=== PATIENT | male | born 1940 | race Caucasian/White ===

== ENCOUNTER 2025-01-16 12:58 | Outpatient (AMB) | payer MEDICARE, SELFPAY ==
--- NOTE | 2025-01-16 12:59 | MHC.PC.OV ---
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 Restaurant Cook Required: Yes Accompanied by: Daughter Allergies No Known Allergies Allergy (Verified 01/16/25 13:17) Tobacco use date assessed: 01/16/25 Fall risk assessment: No Falls in past year Last assessed Fall Risk: 01/16/25 Dental Screening Dental Screen Date: 01/16/25 Did you have a dental visit in the last 12 months?: Yes Did you have a dental problem in the last 6 months where you did not have access to dental care?: No Was dental information given to patient?: Patient has dentist HPI HPI Comments History of Present Illness Details History of Present Illness The patient is an 84-year-old male presenting with daugther to establish care as per daughter he has no significant medical history Possible glaucoma: The patient expresses concern about developing glaucoma, with a gradual onset of vision blurriness over the past three years, suspecting cataracts as a possible cause. Surgical History: - Treatment of a right femur intertrochanteric fracture with an intramedullary implant. - Hernia repair in 2019. - Hernia repair approximately 15 years ago. Medications: - Cyanocobalamin with vitamin B12 solution for injection for management of potential vitamin deficiency. 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 - The patient has not smoked. Family History: - The patient reports no smoking history and no family history of glaucoma or significant familial disease discussed. Past Medical History - Comminuted fracture of the right hip, status post repair with intramedullary implant - Supraventricular tachycardia (SVT) - Gout - Trigeminal neuralgia - Hypertension - Congestive heart failure Health Maintenance - Regular follow-up for chronic conditions scheduled in 2 weeks. - Ophthalmology referral for vision concerns. - Blood work, including tests for vitamin D, B12, and folate. [facility] Medical History (Updated 01/16/25 @ 13:53 by Glenn Pisano MD) Blurry vision Thickened nails Surgical History (Updated 01/16/25 @ 13:28 by Mcihel Syed CMA) H/O hernia repair Social History (Updated 01/16/25 @ 13:20 by Michel Syed CMA) Housing: Apartment Alcohol intake: never Patient Tobacco Use Status: Never used Tobacco e-Cigarette/Vaping Use: Never Used Second Hand Smoke Exposure: No service: No Current occupational status: unemployed Current occupational exposures/hazards: No Cognitive needs: No Hearing needs: No Vision needs: Yes Questionnaire PHQ-9 Over the last 2 weeks, how often have you been bothered by any of the following problems? 1. Little interest or pleasure in doing things: not at all 2. Feeling down, depressed, or hopeless: not at all 3. Trouble falling or staying asleep, or sleeping too much: nearly every day 4. Feeling tired or having little energy: not at all 5. Poor appetite or overeating: not at all 6. Feeling bad about yourself - or that you are a failure or have let yourself or your family down: not at all 7. Trouble concentrating on things, such as reading the newspaper or watching television: not at all 8. Moving or speaking so slowly that other people could have noticed. Or the opposite - being so fidgety or restless that you have been moving around a lot more than usual: not at all 9. Thoughts that you would be better off or of hurting yourself in some way: not at all Total score: 3 Depression Screening Interpretation: Negative Depression Screening Done: Yes 96074 - PHQ-9 Billing: Yes Source: Developed by Drs. Saran Berkowitz, Brenda Yin, Sergei Rosenberg and colleagues, with an educational larry from [employer]. Thrive Questionnaire Date Thrive assessed: 01/16/25 I am a: Patient What is your living situation today?: I have a steady place to live Within the past 12 months, did the food you bought not last and you didn't have the money to get more?: I choose not to answer this question Within the past 12 months, did you worry whether your food would run out before you got money to buy more?: I choose not to answer this question Do you have trouble paying for medicines?: No Do you have trouble getting transportation to medical appointments?: I choose not to answer this question Do you have trouble paying your heating and electricity bill?: I choose not to answer this question Do you have trouble taking care of your child, family member or friend?: I choose not to answer this question Are you currently unemployed and looking for a job?: I choose not to answer this question Are you interested in more education?: I choose not to answer this question Please select the resources that you would like help with: None Currently or been in a relationship where the following occur: No concerns reported THRIVE Score: 0 AUDIT C Alcohol Use Questionnaire (AUDIT-C) 1. How often do you have a drink containing alcohol?: Never Total Score: 0 JARVIS-7 AMB Questionnaire JARVIS-7 Date JARVIS - 7 assessed: 01/16/25 Feeling nervous, anxious, or on edge: 0 = Not at all Not being able to stop or control worryin = Not at all Worrying too much about different things: 0 = Not at all Trouble relaxin = Not at all Being so restless that it is hard to sit still: 0 = Not at all Becoming easily annoyed or irritable: 0 = Not at all Feeling afraid as if something awful might happen: 0 = Not at all Total JARVIS-7 score (0-4 normal; 5-9 mild; 10-14 moderate; 15-21 severe): 0 Source: Developed by Drs. Saran Berkowitz, Brenda Yin, Sergei Rosenberg and colleagues, with an educational larry from [employer]. JARVIS-7 Assessment Billing JARVIS-7 Assessment Tool: JARVIS-7 Assessment 82958 Review of Systems Narrative Review of Systems - Ophthalmologic: Reports gradually worsening blurred vision over the last three years. - Genitourinary: Denies any urinary issues; reports regular daily function. - Neurologic: Reports no foot issues; denies symptoms of gout onset at present. 10-point ROS reviewed and negative except as noted in HPI Physical exam (Primary Care) Vital Signs: Last Vital Signs Temp 97.2 F 01/16/25 13:24 Pulse 66 01/16/25 13:24 Resp 16 01/16/25 13:24 BP 115/65 01/16/25 13:24 Pulse Ox 97 01/16/25 13:24 Oxygen Delivery Method Room Air 01/16/25 13:24 BMI result Body Mass Index 24.0 Tobacco/Smoking Status: Tobacco use Status Tobacco use date assessed 01/16/25 01/16/25 13:20 Patient Tobacco Use Status Never used Tobacco 01/16/25 13:20 e-Cigarette/Vaping Use Never Used 01/16/25 13:20 PHQ-9: PHQ-9 Score PHQ-9: Total score 3 01/16/25 13:00 Depression Screening Interpretation: Negative Thrive Assessment: Date of Thrive Assessment Date Thrive assessed 01/16/25 01/16/25 13:00 Currently or been in a relationship where the following occur: No concerns reported Narrative Physical Exam General: Appears ill, in no acute distress. Vital signs: Within normal limits. HEENT: Normocephalic, atraumatic. PERRLA, EOMI. Conjunctiva clear, sclera anicteric. Oropharynx clear, mucous membranes moist. TMs intact bilaterally. Patient reports blurry vision, possibly due to cataracts, and suspects glaucoma. Neck: Supple, no lymphadenopathy, no thyromegaly, no JVD or carotid bruits. Cardiovascular: RRR, normal S1/S2, no murmurs, rubs, or gallops. Peripheral pulses 2+ and symmetric. No edema. Patient reports occasional heart sensations but no heart medication history. Respiratory: Lungs clear to auscultation bilaterally, no wheezes, rales, or rhonchi. Normal effort. Abdomen: Soft, non-tender, non-distended. Normoactive bowel sounds. No hepatosplenomegaly, no masses. MSK: Full range of motion, no joint swelling or deformity. Normal gait. Patient reports a need for podiatry referral for foot issues. Skin: Warm, dry, intact. No rashes, lesions, or pallor. Thickened nails of the feet Neuro: Alert and oriented x3. Cranial nerves II-XII intact. Strength 5/5 throughout. Sensation intact. Reflexes 2+ symmetric. Normal coordination and gait. Psych: Appropriate mood and affect. Normal judgment and insight. Patient reports occasional insomnia due to worry. Coding Level of Care Code New Pt Level 4 (73436) Diagnoses Blurry vision H53.8 Thickened nails L60.2 Additional Codes JARVIS-7 Assessment Billing - JARVIS-7 Assessment Tool: JARVIS-7 Assessment 50457 ([id number]) PHQ-9 - 73482 - PHQ-9 Billing: Yes ([id number]) Assessment & Plan Assessment & Plan (1) Blurry vision: Code(s): H53.8 - Other visual disturbances Category: Medical (2) Thickened nails: Code(s): L60.2 - Onychogryphosis Category: Medical Plan Consent The patient provided verbal consent for laboratory tests that include vitamin D, B12, and folate levels. Risks, benefits, and alternatives of continuing vitamin B12 supplementation were discussed, and the patient wishes to continue B12 injections. Patient was informed and verbally consented to the use of an ambient scribe for clinic note documentation during this visit. Plan 1. Possible Glaucoma - Referral to ophthalmology. 2. Cataracts - Referral to ophthalmology for assessment. Discussion Notes I discussed the patient's current health status, including the management of chronic conditions. We spoke about the importance of continuing B12 supplementation and I advised the patient to undergo laboratory tests to better understand his vitamin levels. The need for a follow-up ophthalmology consultation for his vision concerns was highlighted and an appointment will be scheduled. Patient Instructions - Continue taking current medications as prescribed. - Follow-up in two weeks for review of lab results. - Obtain laboratory tests including vitamin D, B12, and folate immediately adjacent clinic. - Schedule and attend an ophthalmology appointment to assess vision. - Monitor symptoms and notify the office if experiencing any exacerbations in pain or vision. Medical Decision Making 30 min Total time spent caring for the patient today includes pre-visit chart review, documentation, review of laboratory and diagnostic imaging results, medication reconciliation, medically necessary evaluation, counseling on diagnoses, care coordination, ordering appropriate tests and medications, review of tests performed by other providers, reporting test results to the patient, and communication with other healthcare providers. Orders: Orders Complete Blood Count Auto Diff Today Z13.9 - Encounter for screening, unspecified Comprehensive Met. Panel Today Z13.9 - Encounter for screening, unspecified HIV Ab/Ag Today Z13.9 - Encounter for screening, unspecified UA CC w/rflx Micro + Cult Today Z13.9 - Encounter for screening, unspecified Hemoglobin A1c Today Z13.9 - Encounter for screening, unspecified Magnesium Today Z13.9 - Encounter for screening, unspecified Hepatitis B Surface Antigen Today Z13.9 - Encounter for screening, unspecified Syphilis Screen Today Z13.9 - Encounter for screening, unspecified Hepatitis C Antibody Today Z13.9 - Encounter for screening, unspecified TSH reflex Free T4 Today Z13.9 - Encounter for screening, unspecified Lipid Panel Today Z13.9 - Encounter for screening, unspecified Vitamin B12 and Folate Today Z13.9 - Encounter for screening, unspecified Vitamin D 1,25 dihydroxy Today Z13.9 - Encounter for screening, unspecified Hepatitis B Surface Antibody Today Z13.9 - Encounter for screening, unspecified Referrals Podiatry Referral L60.2 - Onychogryphosis Ophthalmology Referral H53.8 - Other visual disturbances
[2025-01-16 13:24] VITALS: BP 115/65; PULSE 66; RESP 16; TEMP 36.2; O2SAT 97; BMI 24.0
== END 2025-01-16 13:58 | disposition home or self-care (01) ==
LOC: HO.HMCFMS 12:59
PROVIDERS: PCP Student in an Organized Health Care Education/Training Program; Visit Provider Student in an Organized Health Care Education/Training Program
DX: H53.8 Other visual disturbances (principal); L60.2 Onychogryphosis

== ENCOUNTER 2025-01-16 12:58 | Outpatient (REF) | payer MEDICARE, SELFPAY ==
--- OUTSIDE RECORDS SUMMARY | 2023-09-13 10:15 | XMS_ITS ---
Author Organization [facility] Address [address] [place] [address] Care Team Providers Care Toter Name Role Phone Keri WHITAKER, Juan Alberto Primary Care Provider U Juan Guzman Unavailable [phone] Encounters Encounter Location Date Provider Diagnosis [facility] [address] [place] [phone] 09/13/2023 Juan Thompson Plan Of Treatment No Information Progress Notes * Faisal MORANDOB:[birth year] (84 yo M)Acc No.[id number]:09/13/2023 Progress Note Patient: Faisal JACKSON Provider: Yara Thompson DPM :1940 A ge:83 Y S ex:Male Date:09/13/2023 Address:[address] [place] [phone] Pcp:Juan Alberto Saavedra MD Subjective: * Chief Complaints: * * Medical History: Objective: * Vitals: Assessment: Plan: * Treatment: * Images: * The named appointment provid er may or may not be the originator of this progress note, and it is not deemed complete until electronically signed by the appointment provider. Sign off status: Pending * Provider: Yara Thompson DPM Date: 0 09/13/2023 Generated for Geoffi ng/Faxing/eTransmitting on: 1 03/19/2024 07:26 PM EST
--- OUTSIDE RECORDS SUMMARY | 2023-10-18 10:45 | XMS_ITS ---
Author Organization [facility] Address [address] [place] [address] Care Team Providers Care Dental Assistant Name Role Phone Keri WHITAKER, Juan Alberto Primary Care Provider U Juan Guzman Unavailable [phone] Encounters Encounter Location Date Provider Diagnosis [facility] [address] [place] [address] [place] [phone] 10/18/2023 Juan Thompson Plan Of Treatment No Information Progress Notes * Faisal MORANDOB:[birth year] (84 yo M)Acc No.[id number]:10/18/2023 Progress Note Patient: Faisal JACKSON Provider: Yara Thompson DPM :1940 A ge:83 Y S ex:Male Date:10/18/2023 Address:[address] [place] [phone] Pcp:Juan Alberto Saavedra MD Subjective: * Chief [...] 10/18/2023 Generated for Printi ng/Faxing/eTransmitting on: 1 03/19/2024 07:27 PM EST
[2025-01-16 17:45] LABS: MANUAL DIFF FLAG NO
[2025-01-16 17:56] LABS: Appearance Urine Clear; Glucose Urine UA Negative (Negative); PH 5.5 (5.0-9.0); Specific Gravity - Urine 1.020 (1.005-1.025)
[2025-01-16 18:18] LABS: Hematocrit 38.3 % (42.0-52.0); Hemoglobin 12.3 g/dl (14.0-18.0); Imm Gran Abs Auto 0.02 X10*3/uL (0.00-0.03); Imm Gran Pct Auto 0.3 % (0.0-0.4); Lymphocytes Absolute Auto 1.6 X10*3/uL (1.2-4.9); Mean Corpuscular HGB Conc 32.1 g/dl (31.0-36.0); Mean Corpuscular Hemoglobin 26.1 pg (27.0-33.0); Mean Corpuscular Volume 81.1 fL (80.0-98.0); NRBC Abs Auto 0.000 X10*3/uL (0.0-0.012); NRBC Pct Auto 0.0 /100WBC (0.0-0.2); Platelet Count 178 X10*3/uL (160-400); Red Blood Count 4.72 X10*6/uL (4.60-5.80); White Blood Count 6.3 X10*3/uL (4.8-10.8)
[2025-01-16 18:43] LABS: Alanine Aminotransferase 18 U/L (0-40); Albumin Level 4.6 g/dL (3.5-5.0); Alkaline Phosphatase 68 U/L (39-117); Anion Gap 12 (12-20); Aspartate Amino Transferase 23 U/L (5-37); Blood Urea Nitrogen 18 mg/dL (9-16); Calcium 9.2 mg/dL (8.4-10.2); Carbon Dioxide 25 mmol/L (22-29); Chloride 102 mmol/L (96-108); Cholesterol 171 mg/dL (<200); Estimated Glomerular Filt Rate > 60; HDL Cholesterol 55 mg/dL (>40); Magnesium 2.0 mg/dL (1.6-2.6); Potassium 4.0 mmol/L (3.3-5.1); Sodium 135 mmol/L (135-145); Total Protein 7.5 g/dL (6.5-8.0); Triglycerides 154 mg/dL (<150)
[2025-01-16 18:44] LABS: Folate 9.4 ng/mL (> or = 4.0); Vitamin B12 212 pg/mL (200-900)
--- OUTSIDE RECORDS SUMMARY | 2025-01-16 19:27 | XMS_ITS | Clinical Summary ---
Author Organization [facility] [facility] Address [address] [facility] [address] [place] [address] Care Team Providers Care Vascular Manager Name Role Phone Unavailable Primary Care Provider Unavailabl e Social History Tobacco Use Types Packs/Day Years Used Date Smoking Tobacco: Never Assessed Sex and Gender Information Value Date Recorded Sex Assigned at Male 12/13/2021 10:39 AM EDT Legal Sex Male 10:39 AM EDT Gender Identity Male 12/13/2021 10:39 AM EDT Sexual Orientation Straight 12/13/2021 10 :39 AM EDT Plan of Treatment Health Maintenance Due Date Last Done Comments Depression Screening 1940 Lipid Panel 1940 Alcohol/Substance Use Screening 1952 Tobacco Screening 1952 DTaP/Tdap/Td Vaccines (1 - Tdap) 08/22/1959 Pneumococcal Vaccine: 50+ Ye ars (1 of 1 - PCV) 1990 Zoster Vaccines (1 of 2) 1990 RSV Patients and Pa tients Aged 60 years or older (1 - 1-dose 75+ series) 08/22/2015 COVID-19 Vaccine ( - 2024-2 6 season) 2024 Influenza Vaccine (#1) 2024 HIB Vaccines Aged Out No longer eligi ble based on patient's age to complete this topic HPV Vaccines Aged Out No longer eligi ble based on patient's age to complete this topic Hepatitis A Vaccines Aged Out No long er eligible based on patient's age to complete this topic Hepatitis B Vaccines Aged Out No long er eligible based on patient's age to complete this topic IPV Vaccines Aged Out No longer eligi ble based on patient's age to complete this topic Meningococcal B Vaccine Aged Out No l onger eligible based on patient's age to complete this topic Meningococcal Vaccine Aged Out No juan simona eligible based on patient's age to complete this topic RSV under 20 months Aged Out No longe r eligible based on patient's age to complete this topic Rotavirus Vaccines Aged Out No longer eligible based on patient's age to complete this topic
--- OUTSIDE RECORDS SUMMARY | 2025-01-16 19:27 | XMS_ITS | Patient Health Record ---
Author Organization [facility] Address [address] [place] [address] Care Team Providers Care Transition Assistant Name Role Phone Keri WHITAKER, [facility] Primary Care Provider U Juan Guzman Unavailable [phone] Allergies No Known Allergies Reason For Referral No Information Medications Medication SIG (Take, Route, Frequency, Duration) Notes Start Date End Date Status Voltaren 1 % Transdermal Activ e Vitamin B-12 1000 MCG/15ML 15 ml Orally Once a day Not-Taking Orthopedic Extra Depth Shoes With Custom Heat Molded Multidensity Innersoles 1 Pair shoes with 3 Pair custom heat molded innersoles Wear Daily; Duration: 365 days 08/25/2022 Active Vitamin B12 injection Active Advil 200 MG 1 tablet as needed Orally every 6 hrs Not-Taking Ciclopirox Olamine 0.77 % 1 application to affected area Externally to feet Twice a day; Duration: 30 days Active Cyanocobalamin Not-T aking Vitamin D3 Active Ferrous Sulfate Not- Taking Vitamin D 2000 UNIT Oral; Duration: 30 Active Flector 1.3 % Transdermal; Duration: 30 Not-Taking Social History Tobacco Use: Social History Observation Description Date Details (start date - stop date) Never Smoker NA - NA Tobacco Use/Smoking Question Answer Notes Are you a: nonsmoker Additional Findings: Tobacco Non-User Aggressive non-smoker Alcohol Screen Question Answer Notes Did you have a drink containing alcohol in the p ast year? No Points 0 Interpretation Negative Tobacco use other than smoking: Question Answer Notes Are you an other tobacco user? No Plan Of Treatment Pending Test Test Name Order Date 63896-[id number] NAIL, 6 OR MORE 05/18/2015 [id number]-KXXBIQC NAIL, 6 OR MORE 08/24/2015 16613-GVJKOXN NAIL, 6 OR MORE 12/23/2015 53821-MNYCRYF NAIL, 6 OR MORE 07/07/2016 40787-FDKJNSH NAIL, 6 OR MORE 10/13/2016 27898-QXHRILB NAIL, 6 OR MORE 01/12/2017 14179-QADIREH NAIL, 6 OR MORE 05/04/2017 70040-CHVMQUR NAIL, 6 OR MORE 08/10/2017 06002-AHRDBAQ NAIL, 6 OR MORE 11/09/2017 53405-EWZJGOL NAIL, 6 OR MORE 01/20/2014 14286-FXWEVFR NAIL, 6 OR MORE 04/21/2014 66036-PVXTARZ NAIL, 6 OR MORE 08/06/2014 06201-JCJROSD NAIL, 6 OR MORE 11/10/2014 34979-RDHXPXS NAIL, 6 OR MORE 02/16/2015 04388-CBPQRPY NAIL, 6 OR MORE 02/26/2018 40021-QXUJVKF NAIL, 6 OR MORE 05/28/2018 31874-IZJHRHB NAIL, 6 OR MORE 09/03/2018 52557-PRFLYBZ NAIL, 6 OR MORE 12/03/2018 33331-SEEKFNM NAIL, 6 OR MORE 03/11/2019 55187-FGTFDBE NAIL, 6 OR MORE 06/13/2019 37475-GPHENJG NAIL, 6 OR MORE 09/30/2019 82134-ZIMJCAD NAIL, 6 OR MORE 01/27/2020 81587-SGAPIHV NAIL, 6 OR MORE 04/08/2020 92185-OVWZLAT NAIL, 6 OR MORE 06/17/2020 99382-PRDWHNE NAIL, 6 OR MORE 08/26/2020 52127-OEEUUKU NAIL, 6 OR MORE 11/16/2020 18788-USTVKKH NAIL, 6 OR MORE 01/25/2021 59236-HPMPBBR NAIL, 6 OR MORE 04/01/2021 31504-LUUZUMW NAIL, 6 OR MORE 06/10/2021 95927-WBQQYSG NAIL, 6 OR MORE 08/23/2021 80563-UUUBRFU NAIL, 6 OR MORE 11/01/2021 10106-YJBMPBD NAIL, 6 OR MORE 01/13/2022 13041-OHBJHBY NAIL, 6 OR MORE 03/31/2022 59968-EHNOZNK NAIL, 6 OR MORE 06/09/2022 31629-XAOYZHD NAIL, 6 OR MORE 08/25/2022 42416-VNNZHOP NAIL, 6 OR MORE 10/27/2022 09473-BWDCLJP NAIL, 6 OR MORE 02/08/2023 40420-VDHUJLT NAIL, 6 OR MORE 04/19/2023 21654-KEDBRPJ NAIL, 6 OR MORE 06/28/2023 42655-Hcmuwwtu Plate 06/28/2023 44927-Ziskxjgg Plate 04/19/2023 73729-Nwpmeavt Plate 01/27/2020 07366-Vioxruyc Plate 02/08/2023 31758-Pprhshcs Plate 10/27/2022 88382-Uyvtndkx Plate 08/25/2022 55422-Gbdaamvo Plate 06/09/2022 08541-Qyorpcgh Plate 03/31/2022 15015-Akrsadxe Plate 01/13/2022 41603-Nwzxyfil Plate 11/01/2021 76735-Ioakewdv Plate 08/23/2021 92650-Qocfwjha Plate 06/10/2021 79310-Cytpgfkv Plate 04/01/2021 22733-Smenaahj Plate 01/25/2021 90500-Uyxylqgb Plate 11/16/2020 87453-Uyndfdbw Plate 08/26/2020 81111-Zkwelmcq Plate 04/08/2020 56346-Bcqijsfw Plate 02/16/2015 71736-Bnlvqafy Plate Each Additional 31024-Uzuzcmra Plate Each Additional 30097-Lwbedbgu Plate Each Additional 74196-Bhfmypqc Plate Each Additional 18861-Pnjxpjzo Plate Each Additional 12/2021 93501-Emhbaubc Plate Each Additional 47403-Tvlrglpx Plate Each Additional 02/2021 19416-Hcrbxcgz Plate Each Additional 36232-Tdqxyyyd Plate Each Additional 24244-Aufbrztd Plate Each Additional 46171-Vyifjdxq Plate Each Additional 82665-Jzjnugzj Plate Each Additional 32266-Ctkebltg Plate Each Additional 05/2020 01173-Ixyvxuof Plate Each Additional 07/2023 70223-Bhriyipg Plate Each Additional 65142-QLQX SKIN LESIONS, OVER 4 06/28/19 40169-NTJB SKIN LESIONS, OVER 4 04/19/19 70001-KYVY SKIN LESIONS, OVER 4 02/09/20 91096-AAMZ SKIN LESIONS, OVER 4 10/28/19 36238-ZQUS SKIN LESIONS, OVER 4 08/26/19 85995-PTXK SKIN LESIONS, OVER 4 06/10/19 26913-YGIU SKIN LESIONS, OVER 4 03/31/19 91856-NFWX SKIN LESIONS, OVER 4 01/14/20 76018-LQYG SKIN LESIONS, OVER 4 11/02/19 11967-RCTC SKIN LESIONS, OVER 4 08/24/19 26133-QZZK SKIN LESIONS, OVER 4 06/11/19 78269-HCGD SKIN LESIONS, OVER 4 04/01/19 31190-SFEU SKIN LESIONS, OVER 4 01/26/20 81311-CFNL SKIN LESIONS, OVER 4 11/17/19 30946-LXCH SKIN LESIONS, OVER 4 09/04/19 70678-GJFU SKIN LESIONS, OVER 4 05/29/19 03761-PVKF SKIN LESIONS, OVER 4 02/26/19 77203-HDTZ SKIN LESIONS, OVER 4 04/08/19 92445-RILT SKIN LESIONS, OVER 4 01/27/20 15915-NDVG SKIN LESIONS, OVER 4 08/27/19 90178-PSZG SKIN LESIONS, OVER 4 06/18/19 28302-YSMR SKIN LESIONS, OVER 4 09/30/19 26403-TPOB SKIN LESIONS, OVER 4 06/13/19 55460-NAPN SKIN LESIONS, OVER 4 03/11/19 63766-TDPB SKIN LESIONS, OVER 4 12/04/19 Insurance Providers Payer Name Payer Address Payer Phone Subscriber Number Group Number Insured Name Patient Relationship to Insured Coverage Start Date Coverage End Date [employer] [address] [id number] Faisal Moran Self - patient is the insured Medical (General) History Medical History History ICD Code Back pain Hypertension Neck strain Surgical History Surgery Date(Month/Year) hernia inguinal hernia repair 04/05/2017 Hospitalization History Reason Date(Month/Year) [facility]- broke leg 06/25/2020 [facility]- Inguinal Hernia Repair Right 018
--- OUTSIDE RECORDS SUMMARY | 2025-01-16 19:27 | XMS_ITS | Encounter Summary ---
Author Organization [employer] Address [address] [place] [address] Care Team Providers Care Compressor Assembler Name Role Phone Unavailable Primary Care Provider Unavailabl e Encounter Details Date Type Department Care Team (Latest Contact Info) Description 02/01/2021 Abstract [facility] CONVERSIONS Dental, Provider, DDS Social History Tobacco Use Types Packs/Day Years Used Date Smoking Tobacco: Never Assessed Sex and Gender Information Value Date Recorded Sex Assigned at Male 12/13/2021 10:39 AM EDT Legal Sex Male 10:39 AM EDT Gender Identity Male 12/13/2021 10:39 AM EDT Sexual Orientation Straight 12/13/2021 10 :39 AM EDT documented as of this encounter Plan of Treatment Not on file documented as of this encounter Visit Diagnoses Not on filedocumented in this encounter
[2025-01-17 05:38] LABS: HBS Num1 0.62 mIU/mL (0-7.99); HBsAGNum1 0.43 S/CO (0.00-0.99); HIV Num 1 0.07 S/CO (0.00-0.99); Hepatitis B Surface Antigen Negative (Negative); ~HepC Num1 0.31 S/CO (0.00-0.79); ~Hepatitis B Surface Antibody NONREACTIVE (Nonreactive); ~Hepatitis C Antibody Nonreactive (Nonreactive)
[2025-01-17 06:03] LABS: Syphilis Screen Nonreactive (Nonreactive)
[2025-01-21 18:09] LABS: VITAMIN D (1,25 OH) D3 39 pg/mL; Vit D (1,25-Dihydroxy) Total 39 pg/mL (18-72); Vitamin D (1,25 OH) D2 <8 pg/mL
== END 2025-01-16 12:59 | disposition home or self-care (01) ==
LOC: HO.HKASLDS 12:58
PROVIDERS: PCP Student in an Organized Health Care Education/Training Program; Visit Provider Student in an Organized Health Care Education/Training Program
DX: Z76.89 Persons encountering health services in other specified circumstances (principal); H53.8 Other visual disturbances; L60.2 Onychogryphosis; Z13.31 Encounter for screening for depression; Z13.39 Encounter for screening examination for other mental health and behavioral disorders; E55.9 Vitamin D deficiency, unspecified; Z13.6 Encounter for screening for cardiovascular disorders; Z13.1 Encounter for screening for diabetes mellitus
CPT/HCPCS: 36415; 80053; 80061; 81003; 82607; 82652; 82746; 83036; 83735; 84443; 85025; 86706; 86780; 86803; 87340; 87389; 96127; 99202

== ENCOUNTER 2025-01-30 14:50 | Outpatient (AMB) | payer MEDICARE, SELFPAY ==
--- OUTSIDE RECORDS SUMMARY | 2023-09-13 10:15 | XMS_ITS ---
Author Organization [facility] Address [address] [facility] [place] [place] [address] Care Team Providers Care Community Resource Officer Name Role Phone Keri WHITAKER, Juan Alberto Primary Care Provider U Juan Guzman Unavailable [phone] Encounters Encounter Location Date [facility] [address] [place] [phone] 09/13/2023 Juan Thompson Plan Of Treatment No Information Progress Notes * Faisal MORANDOB:[birth year] (84 yo M)Acc No.[id number]:09/13/2023 Progress Note Patient: Faisal JACKSON Provider: Yara Thompson DPM :1940 A ge:83 Y S ex:Male Date:09/13/2023 Address:[address] [place] [phone] Pcp:Juan Alberto Saavedra MD Subjective: * Chief [...] Thompson DPM Date: 0 09/13/2023 Generated for Printi ng/Faxing/eTransmitting on: 1 04/02/2024 06:55 PM EST
--- OUTSIDE RECORDS SUMMARY | 2023-10-18 10:45 | XMS_ITS ---
Author Organization [facility] Address [address] [place] [address] Care Team Providers Care Machine Spreader Name Role Phone Keri WHITAKER, Juan Alberto Primary Care Provider U Juan Guzman Unavailable [phone] Encounters Encounter Location Date Provider [facility] [address] [place] [address] [place] [phone] 10/18/2023 Juan Thompson Plan Of Treatment No Information Progress Notes * Faisal MORANDOB:[birth year] (84 yo M)Acc No.[id number]:10/18/2023 Progress Note Patient: Faisal JACKSON Provider: Yara Thompson DPM :1940 A ge:83 Y S ex:Male Date:10/18/2023 Address:[address] [place] [phone] Pcp:Juan Alberto Saavedra MD Subjective: * Chief [...] 10/18/2023 Generated for Printi ng/Faxing/eTransmitting on: 1 04/02/2024 06:56 PM EST
--- NOTE | 2025-01-30 15:04 | A.OFFPC_ITS ---
Vital Signs 01/30/25 15:09 Height 5 ft 3.75 in Weight 135 lb BMI 23.4 BP 136/63 Blood Pressure Location Lt brachial Position Sitting Respiration 17 Pulse 63 Pulse Source Pulse Oximeter Temp 98 F Temp Source Oral Pulse Oximetry (%) 98 Oxygen Delivery Method Room Air Intake Visit Reasons: 2 wk - lab review Intake Note: Follow up lab review and shortness of breath. Skilled Laborer Required: Yes Skilled Laborer Name: Daughter Accompanied by: Daughter Allergies No Known Allergies Allergy (Verified 01/30/25 15:04) Medication List - Last Reconciled 02/01/25 by Glenn Pisano MD ascorbic acid (vitamin C) 500 mg PO DAILY ferrous sulfate 325 mg PO DAILY mecobalamin (vitamin B12) 1,000 mcg sublingual DAILY Tobacco use date assessed: 01/16/25 Fall risk assessment: No Falls in past year Last assessed Fall Risk: 01/30/25 Dental Screening Dental Screen Date: 01/16/25 HPI HPI Comments 2 History of Present Illness Details History of Present Illness The patient is an 84 year old male presenting for review of laboratory results and evaluation of dyspnea. Anemia: Recent laboratory results revealed low hemoglobin and hematocrit. The patient reports no past medical history. Dyspnea: The patient complains of difficulty breathing, which is associated with his posture when he sits down. He mentions something about a hole in his heart he is not too sure he can explain I do not have medical records at this time to validate his medical history Vitamin B12 Deficiency: Laboratory results show a vitamin B12 level of 212. Hyperbilirubinemia: Laboratory findings include a mildly elevated total bilirubin of 1.2. Hypertriglyceridemia: Laboratory results show a triglyceride level of 154. Social History: - The patient was accompanied to his vis it by his daughter and . Diagnostic Results: - Labs: - Hemoglobin and hematocrit: Low - Total bilirubin: 1.2 (mildly elevated) - Triglycerides: 154 - Vitamin B12: 212 (low) Past Medical History - Per his daughter, the patient has no p ast medical history. Health Maintenance med summary of medical rec This summary outlines the medical care for an elderly male, currently 84 years old, with a complex medical history. The patient initially sought evaluation in late 2019 and early 2020 for progressing neurological symptoms in his lower extremities.?His pre-existing conditions included a history of gout, vitamin B12 deficiency, hypertension, congestive heart failure (CHF), osteoarthritis, peripheral artery disease, and prior right facial trigeminal neuralgia. In late 2019, the patient began experiencing four months of progressing numbness and tingling in both lower extremities, extending from his toes to above his knees.?A vascular surgery consultation in February 2020, supported by arterial studies from January 2020 showing normal ankle-brachial indices, concluded that significant peripheral vascular disease was an unlikely cause for his symptoms.?A neurology consultation followed, which included extensive lab work ruling out Lyme disease and monoclonal gammopathies.?An EMG of the lower extremities in March 2020 was normal, showing no evidence of large fiber sensorimotor polyneuropathy or radiculopathy.?The neurologist diagnosed a possible small fiber peripheral neuropathy given the normal EMG and exam findings. In June 2020, the patient sustained a right femoral intertrochanteric fracture.?He underwent open reduction and internal fixation surgery on June 27, 2020, which successfully achieved near-anatomic alignment of the fracture.?His hospital course was complicated by supraventricular tachycardia (SVT) and postoperative anemia. A transthoracic echocardiogram showed a normal-sized left ventricle with an ejection fraction of 50-55%.?CT scans of the head and cervical spine performed during this admission were unremarkable.?He was discharged to a rehabilitation facility in improved condition. From February 2024, the patient began receiving primary care at [facility]. He continued to report numbness in his legs and feet, which was assessed as polyneuropathy.?A diagnosis of pernicious anemia was made, and the patient reported symptomatic improvement with monthly intramuscular vitamin B12 injections over oral supplements.?In August 2024, he presented with a one-week history of right-sided back pain radiating to his abdomen.?The pain was ultimately determined to be musculoskeletal (costochondritis), and it improved with an anti-inflammatory injection and a muscle relaxant. Workup for the abdominal pain in August 2024 included imaging studies. A chest X-ray revealed findings consistent with COPD/emphysema and atherosclerosis, though the patient was asymptomatic.?An abdominal ultrasound was significant for a possible 3 mm gallbladder polyp and multiple benign hepatic cysts.?A previous ultrasound from April 2023 had shown multiple stones or sludge in the gallbladder.?Laboratory studies at this time also identified low vitamin B12 (198 pg/mL) and mild hyponatremia. Current treatment plans and recommendations are multifaceted. For his musculoskeletal chest pain, he was prescribed a muscle relaxer (methocarbamol) as needed and advised to use heat.?His B12 deficiency is managed with an initial weekly series of B12 injections, followed by monthly injections.?He has been advised on mild salt supplementation for his hyponatremia.?For the incidental findings, no treatment is planned for the asymptomatic COPD, and a follow-up abdominal sonogram in one year is recommended for the gallbladder polyp.?Referrals have been made for cardiology evaluation of a heart murmur, physical therapy for fall risk, podiatry for nail care, and community services for home assistance. 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 Other notable findings include asymptomatic COPD, a mild systolic heart murmur, a gallbladder polyp, and benign hepatic cysts.?His current prescribed medications include intramuscular Vitamin B12 injections (cyanocobalamin) and methocarbamol 500 mg as needed for muscle spasms.?He also takes mbod-eeb-qgvxnrn vitamins.?Previous medications noted in his records from early 2020 included Aspirin and a statin. [facility] Medical History (Updated 02/01/25 @ 14:29 by Glenn Pisano MD) Urinary incontinence, mixed Hyperlipidemia CKD (chronic kidney disease) stage 2, GFR 60-89 ml/min History of supraventricular tachycardia Trigeminal neuralgia Congestive heart failure Dyspnea Blurry vision Thickened nails Surgical History H/O hernia repair Social History (Updated 01/30/25 @ 15:07 by Michel Syed CMA) Housing: Apartment Alcohol intake: never Patient Tobacco Use Status: Never used Tobacco e-Cigarette/Vaping Use: Never Used Second Hand Smoke Exposure: No service: No Current occupational status: unemployed Current occupational exposures/hazards: No Cognitive needs: No Hearing needs: No Vision needs: Yes Questionnaire Thrive Questionnaire Date Thrive assessed: 01/16/25 I am a: Patient What is your living situation today?: I have a steady place to live Within the past 12 months, did the food you bought not last and you didn't have the money to get more?: I choose not to answer this question Within the past 12 months, did you worry whether your food would run out before you got money to buy more?: I choose not to answer this question Do you have trouble paying for medicines?: No Do you have trouble getting transportation to medical appointments?: I choose not to answer this question Do you have trouble paying your heating and electricity bill?: I choose not to answer this question Do you have trouble taking care of your child, family member or friend?: I choose not to answer this question Do you have trouble with day-to-day activities such as bathing, preparing meals, shopping, managing finances, etc.?: Yes Are you currently unemployed and looking for a job?: I choose not to answer this question Are you interested in more education?: I choose not to answer this question Please select the resources that you would like help with: None Currently or been in a relationship where the following occur: No concerns reported THRIVE Score: 0 AUDIT C Alcohol Use Questionnaire (AUDIT-C) 3. How often do you have six or more drinks on one occasion?: Never Total Score: 0 JARVIS-7 AMB Questionnaire JARVIS-7 Date JARVIS - 7 assessed: 01/16/25 Source: Developed by Drs. Saran Berkowitz, Brenda Yin, Sergei Rosenberg and colleagues, with an educational larry from [employer]. Review of Systems Narrative Review of Systems - Respiratory: Reports dyspnea, particularly when sitting down. - Cardiovascular: Mention something about holes in his heart - All other systems reviewed and are negative as per report of no past medical history. 10-point ROS reviewed and negative except as noted in HPI Physical exam (Primary Care) Vital Signs: Last Vital Signs Temp 98 F 01/30/25 15:09 Pulse 63 01/30/25 15:09 Resp 17 01/30/25 15:09 BP 136/63 01/30/25 15:09 Pulse Ox 98 01/30/25 15:09 Oxygen Delivery Method Room Air 01/30/25 15:09 BMI result Body Mass Index 23.4 Tobacco/Smoking Status: Tobacco use Status Tobacco use date assessed 01/16/25 01/30/25 15:05 Patient Tobacco Use Status Never used Tobacco 01/30/25 15:07 e-Cigarette/Vaping Use Never Used 01/30/25 15:07 Thrive Assessment: Date of Thrive Assessment Date Thrive assessed 01/16/25 01/30/25 15:05 Currently or been in a relationship where the following occur: No concerns reported Narrative Physical Exam General: Well-appearing, in no acute distress. Vital signs: Within normal limits. HEENT: Normocephalic, atraumatic. PERRLA, EOMI. Conjunctiva clear, sclera anicteric. Oropharynx clear, mucous membranes moist. TMs intact bilaterally. Neck: Supple, no lymphadenopathy, no thyromegaly, no JVD or carotid bruits. Cardiovascular: RRR, normal S1/S2, no murmurs, rubs, or gallops. Peripheral pulses 2+ and symmetric. No edema. Respiratory: Lungs clear to auscultation bilaterally, no wheezes, rales, or rhonchi. Normal effort. Abdomen: Soft, non-tender, non-distended. Normoactive bowel sounds. No hepatosplenomegaly, no masses. MSK: Full range of motion, no joint swelling or deformity. Normal gait. Skin: Warm, dry, intact. No rashes, lesions, or pallor. Neuro: Alert and oriented x3. Cranial nerves II-XII intact. Strength 5/5 throughout. Sensation intact. Reflexes 2+ symmetric. Normal coordination and gait. Psych: Appropriate mood and affect. Normal judgment and insight. 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 Assessment & Plan Assessment & Plan (1) Thickened nails: Code(s): L60.2 - Onychogryphosis Category: Medical (2) Dyspnea: Code(s): R06.00 - Dyspnea, unspecified Category: Medical (3) Gout: Code(s): M10.9 - Gout, unspecified Category: Medical (4) Vitamin B12 deficiency: Code(s): E53.8 - Deficiency of other specified B group vitamins Category: Medical (5) Hypertension: Code(s): I10 - Essential (primary) hypertension Category: Medical (6) Osteoarthritis: Code(s): M19.90 - Unspecified osteoarthritis, unspecified site Category: Medical (7) PAD (peripheral artery disease): Code(s): I73.9 - Peripheral vascular disease, unspecified Category: Medical (8) Polyneuropathy: Code(s): G62.9 - Polyneuropathy, unspecified Category: Medical (9) Pernicious anemia: Code(s): D51.0 - Vitamin B12 deficiency anemia due to intrinsic factor deficiency Category: Medical (10) COPD (chronic obstructive pulmonary disease): Code(s): J44.9 - Chronic obstructive pulmonary disease, unspecified Category: Medical (11) Emphysema of lung: Code(s): J43.9 - Emphysema, unspecified Category: Medical (12) Atherosclerosis: Code(s): I70.90 - Unspecified atherosclerosis Category: Medical (13) Gallbladder polyp: Code(s): K82.4 - Cholesterolosis of gallbladder Category: Medical (14) Hepatic cyst: Code(s): K76.89 - Other specified diseases of liver Category: Medical (15) Heart block AV first degree: Code(s): I44.0 - Atrioventricular block, first degree Category: Medical Plan Consent Patient was informed and verbally consented to the use of an ambient scribe for clinic note documentation during this visit. Plan 1. Anemia And Vitamin B12 Deficiency - Will begin supplementation with iron and vitamin B12. 2. Dyspnea - An EKG has been ordered to rule out cardiac arrhythmias or other cardiac issues. - A chest x-ray has been ordered for evaluation of the lungs. 3. Hyperbilirubinemia - The mildly elevated total bilirubin was explained to the patient. - Advised that he can make a separate appointment if he desires further education on this finding. 4. Hypertriglyceridemia - The triglyceride level of 154 was noted from recent lab work. Discussion Notes I reviewed the patient's lab results with him and his family. Puente findings included low hemoglobin and hematocrit, a low vitamin B12 level of 212, a mildly elevated total bilirubin of 1.2, and triglycerides of 154. I extensively explained the bilirubin result and advised that he could schedule a separate appointment for further education. We also discussed his new complaint of dyspnea, which worsens with his posture when sitting. I explained the plan to supplement his iron and B12, and to investigate the dyspnea with an EKG and a chest X-ray to rule out cardiac or pulmonary issues. Patient Instructions - You will begin taking iron and vitamin B12 supplements. - Please complete the EKG and chest x-ray that have been ordered for you. - If you have more questions about your bilirubin blood test result, please make another appointment to discuss it. Medical Decision Making The patient is an 84-year-old male with a new complaint of dyspnea, presenting for a review of lab results. The lab work is significant for anemia and vitamin B12 deficiency, which will be treated with iron and B12 supplementation. His dyspnea is positional, worsening upon sitting, and while he denies a cardiac history, an underlying cardiopulmonary etiology must be excluded given his age. Therefore, an EKG and a chest x-ray are ordered for further evaluation. Other lab abnormalities include a mildly elevated total bilirubin and triglycerides, which were discussed with the patient but are of lower acuity and do not require immediate intervention. Total Time Statement 30 min Total time spent caring for the patient today includes pre-visit chart review, documentation, review of laboratory and diagnostic imaging results, medication reconciliation, medically necessary evaluation, counseling on diagnoses, care coordination, ordering appropriate tests and medications, review of tests performed by other providers, reporting test results to the patient, and communication with other healthcare providers. Orders: Orders XR chest 2V 01/31/25 R06.00 - Dyspnea, unspecified CA echo transthoracic complete Today I10 - Essential (primary) hypertension, I44.0 - Atrioventricular block, first degree, I70.90 - Unspecified atherosclerosis, I73.9 - Peripheral vascular disease, unspecified AMB EKG-In Office 01/30/25 R06.00 - Dyspnea, unspecified, Z13.6 - Encounter for screening for cardiovascular disorders PFT pulmonary function test Today J43.9 - Emphysema, unspecified, J44.9 - Chronic obstructive pulmonary disease, unspecified US abdomen limited Today K76.89 - Other specified diseases of liver, K82.4 - Cholesterolosis of gallbladder Referrals Cardiology Referral I10 - Essential (primary) hypertension, I44.0 - Atrioventricular block, first degree Pulmonology Referral J43.9 - Emphysema, unspecified, J44.9 - Chronic obstructive pulmonary disease, unspecified, R06.00 - Dyspnea, unspecified Medications: New ascorbic acid (vitamin C) 500 mg PO DAILY 90 tabs 0RF ferrous sulfate 325 mg PO DAILY 90 tabs 0RF mecobalamin (vitamin B12) place tablet under tongue and allow to dissolve for at least30 secs before swallowing 1,000 mcg sublingual DAILY 90 tabs 0RF
[2025-01-30 15:09] VITALS: BP 136/63; PULSE 63; RESP 17; TEMP 36.6; O2SAT 98; BMI 23.4
--- OUTSIDE RECORDS SUMMARY | 2025-01-30 18:56 | XMS_ITS | Encounter Summary ---
Author Organization [facility] [employer] Address [address] [place] [address] [address] [place] [address] Care Team Providers Care Hooker Laster Name Role Phone Unavailable Primary Care Provider Unavailabl e Encounter Details Date Type Department Care Team (Latest Contact Info) Description 02/01/2021 Abstract [facility] CONVERSIONS Dental, Provider, DDS Social History Tobacco [...]
--- OUTSIDE RECORDS SUMMARY | 2025-01-30 18:56 | XMS_ITS | Clinical Summary ---
Author Organization [employer] Address [address] [facility] [address] [place] [address] Care Team Providers Care Supervisor [employer] Name Role Phone Unavailable Primary Care Provider [...]
--- OUTSIDE RECORDS SUMMARY | 2025-01-30 18:56 | XMS_ITS | Patient Health Record ---
Author Organization [facility] Address [address] [place] [address] Care Team Providers Care Refrigeration Supervisor Name Role Phone Keri WHITAKER, [facility] Primary Care Provider U Juan Guzman Unavailable [phone] Allergies No Known Allergies Reason For Referral [...] Treatment Pending Test Test Name Order Date [id number] NAIL, 6 OR MORE 05/18/2015 08588-JADJYBZ NAIL, 6 OR MORE 08/24/2015 90980-UDTJDWK NAIL, 6 OR MORE 12/23/2015 15544-ICPQHXD NAIL, 6 OR MORE 07/07/2016 90692-EDFRCTJ NAIL, 6 OR MORE 10/13/2016 37452-EMKQGVF NAIL, 6 OR MORE 01/12/2017 87122-LKAXRCN NAIL, 6 OR MORE 05/04/2017 36805-CXULEVV NAIL, 6 OR MORE 08/10/2017 00481-KEMBQSG NAIL, 6 OR MORE 11/09/2017 25422-QYERJAA NAIL, 6 OR MORE 01/20/2014 80976-FWTFLAI NAIL, 6 OR MORE 04/21/2014 01384-VPXKCDC NAIL, 6 OR MORE 08/06/2014 33488-TQWDFSM NAIL, 6 OR MORE 11/10/2014 07609-JMFOSCH NAIL, 6 OR MORE 02/16/2015 25191-CAQPHBQ NAIL, 6 OR MORE 02/26/2018 65259-PGONXBL NAIL, 6 OR MORE 05/28/2018 96239-MPGYWTL NAIL, 6 OR MORE 09/03/2018 83552-UFYLOAT NAIL, 6 OR MORE 12/03/2018 68356-YPWTRZU NAIL, 6 OR MORE 03/11/2019 49498-YIKBRIO NAIL, 6 OR MORE 06/13/2019 11397-RYMADAK NAIL, 6 OR MORE 09/30/2019 31732-LBHUDND NAIL, 6 OR MORE 01/27/2020 41268-KTFLRKR NAIL, 6 OR MORE 04/08/2020 58064-UIGBVUB NAIL, 6 OR MORE 06/17/2020 93482-FQVWSZF NAIL, 6 OR MORE 08/26/2020 52947-QFOBUQB NAIL, 6 OR MORE 11/16/2020 79972-LLLQPTP NAIL, 6 OR MORE 01/25/2021 00358-BVOZSOA NAIL, 6 OR MORE 04/01/2021 69263-MLQEMAS NAIL, 6 OR MORE 06/10/2021 37845-RGKHAMN NAIL, 6 OR MORE 08/23/2021 21316-JCXMDRO NAIL, 6 OR MORE 11/01/2021 34593-YFVCIIU NAIL, 6 OR MORE 01/13/2022 96204-NKQHEFK NAIL, 6 OR MORE 03/31/2022 49883-EYXMDSP NAIL, 6 OR MORE 06/09/2022 82243-SMJIXGF NAIL, 6 OR MORE 08/25/2022 32226-ZRILISC NAIL, 6 OR MORE 10/27/2022 23412-LCVKQZR NAIL, 6 OR MORE 02/08/2023 88248-ZVDLMOX NAIL, 6 OR MORE 04/19/2023 33895-NEGIKWI NAIL, 6 OR MORE 06/28/2023 64182-Piovzaxf Plate 06/28/2023 88339-Dxfozkfu Plate 04/19/2023 23692-Dptgmvre Plate 01/27/2020 33106-Ymleyvpv Plate 02/08/2023 69881-Mzywarhh Plate 10/27/2022 47054-Vduwrarp Plate 08/25/2022 85639-Fcfwjbon Plate 06/09/2022 58950-Rqcvxmis Plate 03/31/2022 91735-Vpejwxyt Plate 01/13/2022 95803-Bxlpgtve Plate 11/01/2021 06377-Bfjgrkyg Plate 08/23/2021 52419-Peyasptg Plate 06/10/2021 75618-Mwwhjlge Plate 04/01/2021 27004-Zdzrqmtd Plate 01/25/2021 13876-Raygqejw Plate 11/16/2020 51881-Rsfkctwc Plate 08/26/2020 40677-Bjotqvjj Plate 04/08/2020 25013-Agsfxczk Plate 02/16/2015 01204-Qnlpzvrb Plate Each Additional 70578-Zttpcybo Plate Each Additional 02467-Qydbdylz Plate Each Additional 15141-Mqoaintn Plate Each Additional 67600-Kwxmwzde Plate Each Additional 12/2021 39446-Xvdulhxz Plate Each Additional 42542-Twqinmgn Plate Each Additional 02/2021 32883-Vzsxyody Plate Each Additional 07202-Jyfoisoa Plate Each Additional 08328-Arfwmabs Plate Each Additional 66251-Osazxeid Plate Each Additional 56835-Vjvfvusd Plate Each Additional 25546-Hihabauk Plate Each Additional 05/2020 51139-Woxbcdzu Plate Each Additional 07/2023 68419-Qhctypyt Plate Each Additional 25524-IPNQ SKIN LESIONS, OVER 4 06/28/19 92754-CXXC SKIN LESIONS, OVER 4 04/19/19 35298-HTJE SKIN LESIONS, OVER 4 02/09/20 08013-AWQB SKIN LESIONS, OVER 4 10/28/19 99927-VQRE SKIN LESIONS, OVER 4 08/26/19 91284-VPJO SKIN LESIONS, OVER 4 06/10/19 38438-OTDQ SKIN LESIONS, OVER 4 03/31/19 56865-PFYW SKIN LESIONS, OVER 4 01/14/20 69271-DPFB SKIN LESIONS, OVER 4 11/02/19 00457-ZMCY SKIN LESIONS, OVER 4 08/24/19 07948-NFKW SKIN LESIONS, OVER 4 06/11/19 11327-XQIS SKIN LESIONS, OVER 4 04/01/19 97467-GRLP SKIN LESIONS, OVER 4 01/26/20 15153-GKIC SKIN LESIONS, OVER 4 11/17/19 96997-THEX SKIN LESIONS, OVER 4 09/04/19 84480-VWJS SKIN LESIONS, OVER 4 05/29/19 71833-JZKG SKIN LESIONS, OVER 4 02/26/19 31586-ERGU SKIN LESIONS, OVER 4 04/08/19 95769-KEFY SKIN LESIONS, OVER 4 01/27/20 31763-XARE SKIN LESIONS, OVER 4 08/27/19 63751-MEVC SKIN LESIONS, OVER 4 06/18/19 03603-YQST SKIN LESIONS, OVER 4 09/30/19 63959-SLOJ SKIN LESIONS, OVER 4 06/13/19 21507-BVWE SKIN LESIONS, OVER 4 03/11/19 11772-EEKX SKIN LESIONS, OVER 4 12/04/19 Insurance Providers Payer Name Payer Address Payer Phone Subscriber Number Group Number Insured Name Patient Relationship to Insured Coverage Start Date Coverage End Date [employer] [address] [phone] [id number] Faisal Moran Self - patient is the insured Medical (General) History Medical History History ICD Code Back pain Hypertension Neck strain Surgical History Surgery Date(Month/Year) hernia inguinal hernia repair 04/05/2017 Hospitalization History Reason Date(Month/Year) Uriostegui- broke leg 06/25/2020 [facility]- Inguinal Hernia Repair Right 018
== END 2025-01-30 15:57 | disposition home or self-care (01) ==
LOC: HO.HMCFMS 14:51
PROVIDERS: PCP Student in an Organized Health Care Education/Training Program; Visit Provider Student in an Organized Health Care Education/Training Program
DX: L60.2 Onychogryphosis (principal); R06.00 Dyspnea, unspecified; M10.9 Gout, unspecified; E53.8 Deficiency of other specified B group vitamins; I10 Essential (primary) hypertension; M19.90 Unspecified osteoarthritis, unspecified site; I73.9 Peripheral vascular disease, unspecified; G62.9 Polyneuropathy, unspecified; D51.0 Vitamin B12 deficiency anemia due to intrinsic factor deficiency; J44.9 Chronic obstructive pulmonary disease, unspecified; J43.9 Emphysema, unspecified; I70.90 Unspecified atherosclerosis; K82.4 Cholesterolosis of gallbladder; K76.89 Other specified diseases of liver; I44.0 Atrioventricular block, first degree

== ENCOUNTER → 2025-01-30 14:50 | Outpatient (BNVA) | payer MEDICARE, SELFPAY | PROVIDERS: Visit Provider Student in an Organized Health Care Education/Training Program | DX: Z71.2 Person consulting for explanation of examination or test findings (principal); R06.09 Other forms of dyspnea; L60.2 Onychogryphosis; M10.9 Gout, unspecified; I10 Essential (primary) hypertension; M19.90 Unspecified osteoarthritis, unspecified site; I73.9 Peripheral vascular disease, unspecified; G62.9 Polyneuropathy, unspecified; D51.0 Vitamin B12 deficiency anemia due to intrinsic factor deficiency; J44.9 Chronic obstructive pulmonary disease, unspecified; J43.9 Emphysema, unspecified; I70.90 Unspecified atherosclerosis; K82.4 Cholesterolosis of gallbladder; K76.89 Other specified diseases of liver; I44.0 Atrioventricular block, first degree | CPT/HCPCS: 99212 ==

== ENCOUNTER 2025-01-31 10:52 | Outpatient (REF) | payer MEDICARE, SELFPAY ==
--- OUTSIDE RECORDS SUMMARY | 2023-09-13 10:15 | XMS_ITS ---
Author Organization [facility] Address [address] [facility] [place] [address] Care Team Providers Care Interface Designer Name Role Phone Keri WHITAKER, Juan Alberto Primary Care Provider U Juan Guzman Unavailable [phone] Encounters Encounter Location Date Provider [facility] [address] [place] [phone] 09/13/2023 Juan Thompson Plan Of Treatment No Information Progress Notes * Faisal MORANDOB:[birth year] (84 yo M)Acc No.[id number]:09/13/2023 Progress Note Patient: Faisal JACKSON Provider: Yara Thompson DPM :1940 A ge:83 Y S ex:Male Date:09/13/2023 Address:[address] [place] [phone] Pcp:Juan Alberto Saavedra MD Subjective: * Chief [...] 09/13/2023 Generated for Printi ng/Faxing/eTransmitting on: 1 04/03/2024 12:44 PM EST
--- OUTSIDE RECORDS SUMMARY | 2023-10-18 10:45 | XMS_ITS ---
Author Organization [facility] Address [address] [place] [address] Care Team Providers Care Rubber Flap Tuber Machine Operator Name Role Phone Keri WHITAKER, Juan Alberto Primary Care Provider U Juan Guzman Unavailable [phone] Encounters Encounter Location Date Provider Diagnosis [facility] [address] [place] [address] [place] [phone] 10/18/2023 Juan Thompson Plan Of Treatment No Information Progress Notes * Faisal MORANDOB:[birth year] (84 yo M)Acc No.[id number]:10/18/2023 Progress Note Patient: Faisal JACKSON Provider: Yara Thompson DPM :1940 A ge:83 Y S ex:Male Date:10/18/2023 Address:[address] [place] [phone] Pcp:Juan Alberto Saavedra MD Subjective: * Chief [...] 10/18/2023 Generated for Printi ng/Faxing/eTransmitting on: 1 04/03/2024 12:44 PM EST
--- NOTE | ~2025-01-31 | XR_ITS ---
EXAMINATION: XR CHEST CLINICAL INFORMATION: R06.00 - Dyspnea, unspecified COMPARISON: None available. TECHNIQUE: PA and lateral views FINDINGS: Pulmonary reticular pattern. No consolidation, pleural effusion or pneumothorax. Increased AP diameter of the thorax. Hyperinflated lungs. Cardiomediastinal silhouette demonstrates a prominent calcified aortic arch which measures 4 cm in maximum dimension. Multilevel thoracolumbar spondylosis and kyphotic deformity upper thoracic spine. S-shaped curvature of the mid thoracic spine. XR/XR chest 2V IMPRESSION: Emphysematous type changes without gross acute airspace disease. Prominent aortic arch. Consider further imaging evaluation with noncontrast CT chest. Electronically signed by: Marciano García MD 01/31/2025 11:15 AM [facility]
--- OUTSIDE RECORDS SUMMARY | 2025-01-31 12:44 | XMS_ITS | Clinical Summary ---
Author Organization [employer] Address [address] [facility] 7[address] [place] [address] Care Team Providers Care Prescription Benefit Specialist Name Role Phone Unavailable Primary Care Provider [...]
--- OUTSIDE RECORDS SUMMARY | 2025-01-31 12:44 | XMS_ITS | Patient Health Record ---
Author Organization [facility] Address [address] [place] [address] Care Team Providers Care Ophthalmic Technologist Name Role Phone Keri WHITAKER, [facility] Primary Care Provider U Juan Guzman Unavailable [phone] Allergies No Known Allergies Reason For Referral [...] Treatment Pending Test Test Name Order Date [id number] NAIL, 6 OR MORE 05/18/2015 65948-GOLAJVF NAIL, 6 OR MORE 08/24/2015 54339-PNALIGS NAIL, 6 OR MORE 12/23/2015 49016-JDOSOTM NAIL, 6 OR MORE 07/07/2016 58065-YONSYYL NAIL, 6 OR MORE 10/13/2016 59439-KWODCPJ NAIL, 6 OR MORE 01/12/2017 27190-KHAKLNK NAIL, 6 OR MORE 05/04/2017 03771-FTFTYBS NAIL, 6 OR MORE 08/10/2017 07704-CQDSHFE NAIL, 6 OR MORE 11/09/2017 65215-GYUKIZT NAIL, 6 OR MORE 01/20/2014 19871-HHTGMAU NAIL, 6 OR MORE 04/21/2014 65911-KTRICYE NAIL, 6 OR MORE 08/06/2014 87034-CUTLDRC NAIL, 6 OR MORE 11/10/2014 69701-LMZZLZJ NAIL, 6 OR MORE 02/16/2015 76129-AZVHIRK NAIL, 6 OR MORE 02/26/2018 96338-FNJOKFV NAIL, 6 OR MORE 05/28/2018 19618-UKBPINR NAIL, 6 OR MORE 09/03/2018 56993-IODJNXJ NAIL, 6 OR MORE 12/03/2018 43983-ABZTOQM NAIL, 6 OR MORE 03/11/2019 09834-BPVLJEX NAIL, 6 OR MORE 06/13/2019 76517-HSVSMBS NAIL, 6 OR MORE 09/30/2019 86871-OZOLGMR NAIL, 6 OR MORE 01/27/2020 37236-ZLTBNEI NAIL, 6 OR MORE 04/08/2020 13608-RTNEFYP NAIL, 6 OR MORE 06/17/2020 05388-OTAXLTA NAIL, 6 OR MORE 08/26/2020 49027-YITGOZE NAIL, 6 OR MORE 11/16/2020 47584-CYZZWVT NAIL, 6 OR MORE 01/25/2021 53634-ZJGPJNQ NAIL, 6 OR MORE 04/01/2021 04763-DHEJMTT NAIL, 6 OR MORE 06/10/2021 84304-GQEGJBD NAIL, 6 OR MORE 08/23/2021 00402-MHQCOAX NAIL, 6 OR MORE 11/01/2021 33738-BBEBAXQ NAIL, 6 OR MORE 01/13/2022 88444-HVHMRSC NAIL, 6 OR MORE 03/31/2022 98611-ZAYROFK NAIL, 6 OR MORE 06/09/2022 38523-IMLZHET NAIL, 6 OR MORE 08/25/2022 32662-CGSUQJA NAIL, 6 OR MORE 10/27/2022 51332-ANZFCVC NAIL, 6 OR MORE 02/08/2023 99130-KTNORHS NAIL, 6 OR MORE 04/19/2023 16131-ZJSQZDO NAIL, 6 OR MORE 06/28/2023 43963-Zmxwmlvk Plate 06/28/2023 05274-Cstnhtxy Plate 04/19/2023 26172-Oyfutnyv Plate 01/27/2020 99493-Vmbdtojl Plate 02/08/2023 45965-Jvihedzh Plate 10/27/2022 05955-Cdnvtxcv Plate 08/25/2022 63964-Hgsuxpmh Plate 06/09/2022 96651-Qgaxkhwc Plate 03/31/2022 03893-Folwtudu Plate 01/13/2022 76825-Tdmgvzpo Plate 11/01/2021 49883-Agettnkq Plate 08/23/2021 05586-Cvykybfi Plate 06/10/2021 89795-Anvuyqha Plate 04/01/2021 05076-Vnvtwrct Plate 01/25/2021 81029-Ibdhqinp Plate 11/16/2020 65879-Rtcobzuk Plate 08/26/2020 43925-Dcizusum Plate 04/08/2020 18858-Adkevapy Plate 02/16/2015 53780-Xtkufhdw Plate Each Additional 62611-Lpgsxqbu Plate Each Additional 40271-Hgeyytsn Plate Each Additional 80104-Dcdgztbe Plate Each Additional 87109-Htzgvuju Plate Each Additional 12/2021 06587-Sfeyikjs Plate Each Additional 69262-Tfyfytxs Plate Each Additional 02/2021 71170-Dluifenb Plate Each Additional 96291-Tkgekwwg Plate Each Additional 05427-Wtgtumgw Plate Each Additional 77028-Vntpldja Plate Each Additional 03534-Dupihduk Plate Each Additional 19202-Apllmhng Plate Each Additional 05/2020 35773-Jknbwyeo Plate Each Additional 07/2023 65167-Ghzyvtok Plate Each Additional 09219-ISUG SKIN LESIONS, OVER 4 06/28/19 70114-NMJP SKIN LESIONS, OVER 4 04/19/19 31911-UHJV SKIN LESIONS, OVER 4 02/09/20 79367-JVEV SKIN LESIONS, OVER 4 10/28/19 46687-EFOX SKIN LESIONS, OVER 4 08/26/19 23906-SJYC SKIN LESIONS, OVER 4 06/10/19 87793-YNTZ SKIN LESIONS, OVER 4 03/31/19 01330-KTTM SKIN LESIONS, OVER 4 01/14/20 92513-FQDH SKIN LESIONS, OVER 4 11/02/19 50762-UNML SKIN LESIONS, OVER 4 08/24/19 86184-QMHL SKIN LESIONS, OVER 4 06/11/19 97302-PEWJ SKIN LESIONS, OVER 4 04/01/19 23092-HGSM SKIN LESIONS, OVER 4 01/26/20 63108-MWME SKIN LESIONS, OVER 4 11/17/19 55846-GFOZ SKIN LESIONS, OVER 4 09/04/19 24271-QKYD SKIN LESIONS, OVER 4 05/29/19 82826-ZUXE SKIN LESIONS, OVER 4 02/26/19 72593-LRKC SKIN LESIONS, OVER 4 04/08/19 27655-YGUL SKIN LESIONS, OVER 4 01/27/20 55127-TUMG SKIN LESIONS, OVER 4 08/27/19 19266-MNNT SKIN LESIONS, OVER 4 06/18/19 90968-JFMU SKIN LESIONS, OVER 4 09/30/19 51986-MYSY SKIN LESIONS, OVER 4 06/13/19 63066-CEAQ SKIN LESIONS, OVER 4 03/11/19 93761-LZZO SKIN LESIONS, OVER 4 12/04/19 Insurance Providers Payer Name Payer Address Payer Phone Subscriber Number Group Number Insured Name Patient Relationship to Insured Coverage Start Date Coverage End Date [employer] [address] [id number] Faisal Moran Self - patient is the insured Medical (General) History Medical History History ICD Code Back pain Hypertension Neck strain Surgical History Surgery Date(Month/Year) hernia inguinal hernia repair 04/05/2017 Hospitalization History Reason Date(Month/Year) Uriostegui- broke leg 06/25/2020 [facility]- Inguinal Hernia Repair Right 018
--- OUTSIDE RECORDS SUMMARY | 2025-01-31 12:45 | XMS_ITS | Encounter Summary ---
Author Organization [employer] Address [address] [facility] 7 [place] [address] Care Team Providers Care Reliner Name Role Phone Unavailable Primary Care Provider Unavailabl e Encounter Details Date Type Department Care Team (Latest Contact Info) Description 02/01/2021 Abstract [facility] CONVERSIONS Dental, Provider, DDS Social History [...]
== END 2025-01-31 10:53 | disposition home or self-care (01) ==
LOC: HO.XRAY 10:52
PROVIDERS: PCP Student in an Organized Health Care Education/Training Program; Visit Provider Student in an Organized Health Care Education/Training Program
DX: R06.00 Dyspnea, unspecified (principal)
CPT/HCPCS: 71046

== ENCOUNTER → 2025-01-31 10:59 | Outpatient (BNV) | payer MEDICARE, SELFPAY | PROVIDERS: PCP Student in an Organized Health Care Education/Training Program; Visit Provider Radiology Diagnostic Radiology | DX: J43.9 Emphysema, unspecified (principal) | CPT/HCPCS: 71046 ==

== ENCOUNTER 2025-02-03 13:52 | Outpatient (AMB) | payer MEDICARE, SELFPAY ==
--- OUTSIDE RECORDS SUMMARY | 2023-09-13 10:15 | XMS_ITS ---
Author Organization [facility] Address [address] [place] [address] Care Team Providers Care Foundry Operator Name Role Phone Keri WHITAKER, Juan Alberto Primary Care Provider U Juan Guzman Unavailable [phone] Encounters Encounter Location Date Provider [facility] [address] [place] [address] [place] [phone] 09/13/2023 Juan Thompson Plan Of Treatment No Information Progress Notes * Faisal MORANDOB:[birth year] (84 yo M)Acc No.[id number]:09/13/2023 Progress Note Patient: Faisal JACKSON Provider: Yara Thompson DPM :1940 A ge:83 Y S ex:Male Date:09/13/2023 Address:[address] [place] [phone] Pcp:Juan Alberto Saavedra MD Subjective: * Chief [...] 09/13/2023 Generated for Printi ng/Faxing/eTransmitting on: 1 04/06/2024 05:21 PM EST
--- OUTSIDE RECORDS SUMMARY | 2023-10-18 10:45 | XMS_ITS ---
Author Organization [facility] Address [address] [facility] [place] [address] Care Team Providers Care Cigarette Making Machine Hopper Feeder Name Role Phone Keri WHITAKER, Juan Alberto Primary Care Provider U Juan Guzman Unavailable [phone] Encounters Encounter Location Date Provider [facility] [address] [place] [address] [place] [phone] 10/18/2023 Juan Thompson Plan Of Treatment No Information Progress Notes * Faisal MORANDOB:[birth year] (84 yo M)Acc No.[id number]:10/18/2023 Progress Note Patient: Faisal JACKSON Provider: Yara Thompson DPM :1940 A ge:83 Y S ex:Male Date:10/18/2023 Address:[address] [place] [phone] Pcp:Juan Alberto Saavedra MD Subjective: * Chief [...] Thompson DPM Date: 0 10/18/2023 Generated for Geoffi ng/Faxing/eTransmitting on: 1 04/06/2024 05:21 PM EST
--- NOTE | 2025-02-03 13:58 | A.OFFPC_ITS ---
Vital Signs 02/03/25 14:04 Height 5 ft 3.75 in Weight 132 lb 2 oz BMI 22.9 BP 113/56 L Blood Pressure Location Lt brachial Position Sitting Pulse 67 Pulse Source Pulse Oximeter Temp 97.4 F Temp Source Oral Pulse Oximetry (%) 96 Oxygen Delivery Method Room Air Intake Visit Reasons: x-ray review Accompanied by: Daughter Allergies No Known Allergies Allergy (Verified 02/03/25 14:01) Medication List - Last Reconciled 02/03/25 by Glenn Pisano MD ascorbic acid (vitamin C) 500 mg PO DAILY ferrous sulfate 325 mg PO DAILY mecobalamin (vitamin B12) 1,000 mcg sublingual DAILY Tobacco use date assessed: 02/03/25 Fall risk assessment: No Falls in past year Last assessed Fall Risk: 02/03/25 Dental Screening Dental Screen Date: 02/03/25 Did you have a dental visit in the last 12 months?: Yes HPI HPI Comments History of Present Illness Details History of Present Illness The patient is an 84 year old male presenting for review of his extensive medical records and recent diagnostic results. Chronic Obstructive Pulmonary Disease: A chest x-ray from August 2024 revealed findings consistents with chronic obstructive pulmonary disease and emphysema, which were also observed on a recent chest x-ray. The patient has no personal history of smoking but was exposed to secondhand smoke. He reported difficulty breathing during a previous visit. Past management from prior providers included no planned treatment as he was considered asymptomatic at that time. Heart Murmur: The patient has a known history of a mild systolic heart murmur, for which a cardiology referral was previously made. Gallbladder and Liver Disease: An abdominal ultrasound in August 2024 showed a possible 3 mm gallbladder polyp, which was thought to explain an elevated total bilirubin, and multiple benign hepatic cysts. A prior ultrasound from April 2023 had shown multiple stones or sludge in the gallbladder. A follow-up abdominal sonogram in one year was recommended by his previous provider for the gallbladder polyp. Peripheral Neuropathy: In late 2019, the patient began experiencing months of progressing numbness and tingling in both lower extremities, extending from his toes to above his knees. A vascular surgery consultation in February 2020 and arterial studies ruled out significant peripheral vascular disease as a cause. A neurology consultation followed, and an EMG of the lower extremities in 2020 was normal, leading to a diagnosis of possible small fiber peripheral neuropathy. He continued to report numbness in his legs and feet, which was assessed as polyneuropathy during primary care visits in 2024. Anemia: The patient carries a diagnosis of pernicious anemia, with prior symptomatic improvement reported with monthly intramuscular vitamin B12 injections. He also had postoperative anemia following his hip surgery in 2020, and recent labs showed his B12 was low at 212 and his iron was low. Right Femoral Fracture: The patient has a history of a right femoral intertrochanteric fracture, for which he underwent open reduction and internal fixation surgery on June 27, 2020. His hospital course was complicated by supraventricular tachycardia and postoperative anemia, and he was discharged to a rehabilitation facility. Surgical History: - Open reduction and internal fixation o f a right femoral intertrochanteric fracture on June 27, 2020. Medications: - Intramuscular vitamin B12 injections, administered monthly for pernicious anemia. Social History: - Tobacco Use: Never a smoker, but repor ts past exposure to secondhand smoke. 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 - Social Support: Receives home assistan ce from community services and has family involvement in his care. Diagnostic Results: - Labs: - Vitamin B12: 212 (low). - Total bilirubin: Elevated (per discuss ion). - Iron: Low (per discussion). - Sodium: Mild hyponatremia (August 2024). - Hemoglobin/Hematocrit: Low (per discus ralph). - Imaging: - Chest X-ray (recent): Showed emphysema tous type changes and a prominent aortic arch without gross acute airspace disease. - Chest X-ray (August 2024): Revealed find ings consistent with chronic obstructive pulmonary disease, emphysema, and atherosclerosis. - Abdominal Ultrasound (August 2024): Show ed a possible 3 mm gallbladder polyp and multiple benign hepatic cysts. - Abdominal Ultrasound (April 2023): Johanny wed multiple stones or sludge in the gallbladder. - CT Head and Cervical Spine (June 2020): Unremarkable. - Tests/Diagnostics: - Transthoracic Echocardiogram (June 2020 ): Showed a normal size left ventricle with an ejection fraction of 50-55%. - Electromyography (EMG) of lower extrem ities (2020): Normal, with no evidence of large fiber sensory motor polyneuropathy or radiculopathy. - Arterial Studies (January 2020): Show ed normal brachial indexes. 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 - Past referrals were made for physical therapy for fall risk, podiatry for nail care, and community service for home assistance. [facility] Medical History Urinary incontinence, mixed Hyperlipidemia CKD (chronic kidney disease) stage 2, GFR 60-89 ml/min History of supraventricular tachycardia Trigeminal neuralgia Congestive heart failure Dyspnea Blurry vision Thickened nails Surgical History H/O hernia repair Social History Housing: Apartment Alcohol intake: never Patient Tobacco Use Status: Never used Tobacco e-Cigarette/Vaping Use: Never Used Second Hand Smoke Exposure: No service: No Current occupational status: unemployed Current occupational exposures/hazards: No Cognitive needs: No Hearing needs: No Vision needs: Yes Questionnaire PHQ-9 Over the last 2 weeks, how often have you been bothered by any of the following problems? 1. Little interest or pleasure in doing things: not at all 2. Feeling down, depressed, or hopeless: not at all 3. Trouble falling or staying asleep, or sleeping too much: nearly every day 4. Feeling tired or having little energy: not at all 5. Poor appetite or overeating: not at all 6. Feeling bad about yourself - or that you are a failure or have let yourself or your family down: not at all 7. Trouble concentrating on things, such as reading the newspaper or watching television: not at all 8. Moving or speaking so slowly that other people could have noticed. Or the o pposite - being so fidgety or restless that you have been moving around a lot more than usual: not at all 9. Thoughts that you would be better off or of hurting yourself in some way: not at all Total score: 3 Depression Screening Interpretation: Negative Depression Screening Done: Yes 77959 - PHQ-9 Billing: Yes Source: Developed by Drs. Saran Berkowitz, Brenda Yin, Sergei Rosenberg and colleagues, with an educational larry from [employer]. Thrive Questionnaire Date Thrive assessed: 02/03/25 I am a: Patient What is your living situation today?: I have a steady place to live Within the past 12 months, did the food you bought not last and you didn't have the money to get more?: I choose not to answer this question Within the past 12 months, did you worry whether your food would run out before you got money to buy more?: I choose not to answer this question Do you have trouble paying for medicines?: No Do you have trouble getting transportation to medical appointments?: I choose not to answer this question Do you have trouble paying your heating and electricity bill?: I choose not to answer this question Do you have trouble taking care of your child, family member or friend?: I choose not to answer this question Do you have trouble with day-to-day activities such as bathing, preparing meals, shopping, managing finances, etc.?: Yes Are you currently unemployed and looking for a job?: I choose not to answer this question Are you interested in more education?: I choose not to answer this question Currently or been in a relationship where the following occur: No concerns reported THRIVE Score: 0 AUDIT C Alcohol Use Questionnaire (AUDIT-C) 3. How often do you have six or more drinks on one occasion?: Never Total Score: 0 JARVIS-7 AMB Questionnaire JARVIS-7 Date JARVIS - 7 assessed: 02/03/25 Feeling nervous, anxious, or on edge: 0 = Not at all Not being able to stop or control worryin = Not at all Worrying too much about different things: 0 = Not at all Trouble relaxin = Not at all Being so restless that it is hard to sit still: 0 = Not at all Becoming easily annoyed or irritable: 0 = Not at all Feeling afraid as if something awful might happen: 0 = Not at all Total JARVIS-7 score (0-4 normal; 5-9 mild; 10-14 moderate; 15-21 severe): 0 Source: Developed by Drs. Saran Berkowitz, Brenda Yin, Sergei Rosenberg and colleagues, with an educational larry from [employer]. Review of Systems Narrative Review of Systems - Respiratory: Reports a history of difficulty breathing on a previous visit. - Neurological: Reports a history of progressing numbness and tingling in both lower extremities, extending from his toes to above his knees. - Musculoskeletal: Reports a history of right-sided back pain radiating into his abdomen. - Head/Face: Reports a history of pain on the right side of his face (trigeminal neuralgia). 10-point ROS reviewed and negative except as noted in HPI Physical exam (Primary Care) Vital Signs: Last Vital Signs Temp 97.4 F 02/03/25 14:04 Pulse 67 02/03/25 14:04 BP 113/56 L 02/03/25 14:04 Pulse Ox 96 02/03/25 14:04 Oxygen Delivery Method Room Air 02/03/25 14:04 BMI result Body Mass Index 22.9 Tobacco/Smoking Status: Tobacco use Status Tobacco use date assessed 02/03/25 02/03/25 14:04 Patient Tobacco Use Status Never used Tobacco 02/03/25 14:00 e-Cigarette/Vaping Use Never Used 02/03/25 14:00 PHQ-9: PHQ-9 Score PHQ-9: Total score 3 02/03/25 14:04 Depression Screening Interpretation: Negative Thrive Assessment: Date of Thrive Assessment Date Thrive assessed 02/03/25 02/03/25 14:04 Currently or been in a relationship where the following occur: No concerns reported Narrative Physical Exam General: Well-appearing, in no acute distress. Vital signs: Within normal limits. HEENT: Normocephalic, atraumatic. PERRLA, EOMI. Conjunctiva clear, sclera anicteric. Oropharynx clear, mucous membranes moist. TMs intact bilaterally. Neck: Supple, no lymphadenopathy, no thyromegaly, no JVD or carotid bruits. Cardiovascular: RRR, normal S1/S2, mild systolic heart murmur, no rubs or gallops. Peripheral pulses 2+ and symmetric. No edema. Respiratory: Lungs clear to auscultation bilaterally, no wheezes, rales, or rhonchi. Normal effort. Abdomen: Soft, non-tender, non-distended. Normoactive bowel sounds. No hepatosplenomegaly, no masses. Possible 3 mm gallbladder polyp and benign hepatic cysts noted. MSK: Full range of motion, no joint swelling or deformity. Normal gait. Skin: Warm, dry, intact. No rashes, lesions, or pallor. Neuro: Alert and oriented x3. Cranial nerves II-XII intact. Strength 5/5 throughout. Sensation intact. Reflexes 2+ symmetric. Normal coordination and gait. Psych: Appropriate mood and affect. Normal judgment and insight. 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 PAD (peripheral artery disease) I73.9 Atherosclerosis I70.90 Hypertension I10 Additional Codes PHQ-9 - 66482 - PHQ-9 Billing: Yes ([id number]) Assessment & Plan Assessment & Plan (1) COPD (chronic obstructive pulmonary disease): Code(s): J44.9 - Chronic obstructive pulmonary disease, unspecified Category: Medical (2) Emphysema of lung: Code(s): J43.9 - Emphysema, unspecified Category: Medical (3) Polyneuropathy: Code(s): G62.9 - Polyneuropathy, unspecified Category: Medical (4) Osteoarthritis: Code(s): M19.90 - Unspecified osteoarthritis, unspecified site Category: Medical (5) Pernicious anemia: Code(s): D51.0 - Vitamin B12 deficiency anemia due to intrinsic factor deficiency Category: Medical (6) Hepatic cyst: Code(s): K76.89 - Other specified diseases of liver Category: Medical (7) Gallbladder polyp: Code(s): K82.4 - Cholesterolosis of gallbladder Category: Medical (8) Vitamin B12 deficiency: Code(s): E53.8 - Deficiency of other specified B group vitamins Category: Medical (9) Heart block AV first degree: Code(s): I44.0 - Atrioventricular block, first degree Category: Medical (10) PAD (peripheral artery disease): Code(s): I73.9 - Peripheral vascular disease, unspecified Category: Medical (11) Atherosclerosis: Code(s): I70.90 - Unspecified atherosclerosis Category: Medical (12) Hypertension: Code(s): I10 - Essential (primary) hypertension Category: Medical Plan Consent Patient was informed and verbally consented to the use of an ambient scribe for clinic note documentation during this visit. Plan 1. Heart Murmur And Cardiovascular Risk - Refer to cardiology for evaluation of his known heart murmur. - Order an echocardiogram to assess cardiac structure and function. 2. Gallbladder And Liver Disease - Order a liver ultrasound to re-evaluate the hepatic cysts, gallbladder polyp, and cholelithiasis/sludge. 3. Anemia (Pernicious And Iron Deficiency) - A prescription for Vitamin B12 has been sent to the pharmacy for patient pickup. - Prescriptions for ferrous sulfate and ascorbic acid have been sent to the pharmacy. - The patient may choose to manage his deficiencies with supplementation or through diet. 4. Follow-Up - The patient is to return for a follow-up visit after he has completed the specialist consultations and diagnostic testing. 5. Chronic Obstructive Pulmonary Disease - Refer to pulmonology for further evaluation and management, particularly given his prior report of dyspnea. - Order a pulmonary function test (PFT) to assess current lung function. - Pending pulmonology evaluation, initiation of inhaler therapy may be considered. Discussion Notes I conducted a detailed review of the patient's extensive past medical records, which were obtained from [facility] and [facility]. I summarized his complex history for his daughter, covering his neurological symptoms, prior fracture, and numerous chronic conditions including COPD, a heart murmur, pernicious anemia, and findings of hepatic cysts, a gallbladder polyp, and gallstones. I explained that his recent chest x-ray findings are consistent with the known diagnosis of COPD and that while not acutely concerning, they warrant specialist follow-up. I discussed the plan to obtain a current baseline by ordering several diagnostic tests, including a pulmonary function test, an echocardiogram, and a liver ultrasound. I outlined the rationale for referring him to both a fisheries management biologist and a loan documentation specialist to manage his respective conditions. We also reviewed his low vitamin B12 and iron levels, and I clarified that I have sent prescriptions for supplements to the pharmacy, which he can choose to take or manage via diet. I advised that he should return to see me after these consultations and tests are completed so we can review the results and adjust the care plan. Patient Instructions - We have made a referral for you to see a lung doctor (fisheries management biologist) to check on your lungs. - You will need to have a lung test called a pulmonary function test. - We have also made a referral for you to see a heart doctor (loan documentation specialist) to check on your heart murmur. - You will need a heart test called an echocardiogram. - We are ordering an ultrasound of your liver to look at the cysts and gallstones that were seen before. - I have sent prescriptions for Vitamin B12, iron (ferrous sulfate), and Vitamin C to your pharmacy. You can decide if you want to take these pills or focus on improving your diet. - Please make a follow-up appointment to see me after you have seen the specialists and had all your tests done. Medical Decision Making The patient is an 84-year-old male with a highly complex, multi-system medical history who presents for a comprehensive review of outside records and establishment of a care plan. The primary focus of this visit was to reconcile his numerous chronic conditions, many of which were not fully appreciated at the initial visit. His recent chest x-ray showing emphysematous changes and a prominent aortic arch, consistent with his known history of COPD and atherosclerosis, necessitates specialist evaluation. A pulmonology referral and a pulmonary function test are indicated to assess the functional impact of his COPD, especially given a prior report of dyspnea. A cardiology referral and an echocardiogram are prudent to evaluate his known heart murmur, especially in the context of his history of CHF and atherosclerosis. His gastrointestinal history of a gallbladder polyp, cholelithiasis with sludge, and benign hepatic cysts requires updated imaging via liver ultrasound to monitor for any interval changes. Lab findings of low vitamin B12 and low iron are consistent with his documented history of pernicious anemia and postoperative anemia. Supplementation has been prescribed, with the option for dietary management as per patient preference. The overall goal is to obtain a current, comprehensive baseline of his chronic conditions through specialist evaluation and diagnostic testing to guide future management. Total Time Statement 30 min Total time spent caring for the patient today includes pre-visit chart review, documentation, review of laboratory and diagnostic imaging results, medication reconciliation, medically necessary evaluation, counseling on diagnoses, care coordination, ordering appropriate tests and medications, review of tests performed by other providers, reporting test results to the patient, and communication with other healthcare providers.
[2025-02-03 14:04] VITALS: BP 113/56; PULSE 67; TEMP 36.3; O2SAT 96; BMI 22.9
--- OUTSIDE RECORDS SUMMARY | 2025-02-03 17:22 | XMS_ITS | Patient Health Record ---
Author Organization [facility] Address [address] [place] [address] Care Team Providers Care Operational Trainer Name Role Phone Keri WHITAKER, [facility] Primary Care Provider U Juan Guzman Unavailable [phone] Allergies No Known Allergies Reason For Referral [...] Treatment Pending Test Test Name Order Date 44487-[id number] NAIL, 6 OR MORE 05/18/2015 26072-FIMTSQI NAIL, 6 OR MORE 08/24/2015 50672-GQJTROG NAIL, 6 OR MORE 12/23/2015 58312-OVAVMFX NAIL, 6 OR MORE 07/07/2016 36190-CDHNRWR NAIL, 6 OR MORE 10/13/2016 24769-ARRFOXP NAIL, 6 OR MORE 01/12/2017 44136-UVIGPRA NAIL, 6 OR MORE 05/04/2017 73813-XPUHFFL NAIL, 6 OR MORE 08/10/2017 79669-BGMZICA NAIL, 6 OR MORE 11/09/2017 26701-NMVDCGI NAIL, 6 OR MORE 01/20/2014 13599-FKZXHOE NAIL, 6 OR MORE 04/21/2014 62529-KKNWVFO NAIL, 6 OR MORE 08/06/2014 53123-LMUNWNV NAIL, 6 OR MORE 11/10/2014 77946-LSUJCRL NAIL, 6 OR MORE 02/16/2015 98781-GTVUYOS NAIL, 6 OR MORE 02/26/2018 44748-RQMEELZ NAIL, 6 OR MORE 05/28/2018 54942-IPFNFIT NAIL, 6 OR MORE 09/03/2018 78720-GESBYLT NAIL, 6 OR MORE 12/03/2018 41595-ZDULTLG NAIL, 6 OR MORE 03/11/2019 25889-ZZHAJHQ NAIL, 6 OR MORE 06/13/2019 59863-YHTILVK NAIL, 6 OR MORE 09/30/2019 74086-WSHGWMH NAIL, 6 OR MORE 01/27/2020 89754-AILLFYL NAIL, 6 OR MORE 04/08/2020 39248-ORJJIBU NAIL, 6 OR MORE 06/17/2020 04891-JHUBVWL NAIL, 6 OR MORE 08/26/2020 76964-SBORPOQ NAIL, 6 OR MORE 11/16/2020 60488-WGMBYZQ NAIL, 6 OR MORE 01/25/2021 75067-BDIURJL NAIL, 6 OR MORE 04/01/2021 90196-YQGOZKB NAIL, 6 OR MORE 06/10/2021 26231-RLBQSYM NAIL, 6 OR MORE 08/23/2021 99829-IEHCQNF NAIL, 6 OR MORE 11/01/2021 24044-CLZIJGY NAIL, 6 OR MORE 01/13/2022 10984-PEELKFB NAIL, 6 OR MORE 03/31/2022 97557-GCXYIRO NAIL, 6 OR MORE 06/09/2022 27270-OVWWHNV NAIL, 6 OR MORE 08/25/2022 27414-QJXSAFY NAIL, 6 OR MORE 10/27/2022 25469-OPKNUWS NAIL, 6 OR MORE 02/08/2023 09187-CRFFULS NAIL, 6 OR MORE 04/19/2023 78233-EYDRCHF NAIL, 6 OR MORE 06/28/2023 65475-Ripsblyz Plate 06/28/2023 26821-Ptaqdqmt Plate 04/19/2023 30977-Kooazyuf Plate 01/27/2020 76109-Taawzeay Plate 02/08/2023 34485-Cohsuwgb Plate 10/27/2022 76471-Vtarubyc Plate 08/25/2022 45851-Ynelqeqs Plate 06/09/2022 92555-Zkugknmo Plate 03/31/2022 46595-Ikdoizjf Plate 01/13/2022 15832-Feqxrglm Plate 11/01/2021 59025-Fddpqwpf Plate 08/23/2021 97418-Xcoachoe Plate 06/10/2021 38904-Ckhipkpr Plate 04/01/2021 22276-Gxdendkn Plate 01/25/2021 19055-Qujofxzg Plate 11/16/2020 80771-Doodpdzl Plate 08/26/2020 35352-Rtayzngp Plate 04/08/2020 09276-Hghmcrau Plate 02/16/2015 22794-Buhkyqar Plate Each Additional 71021-Rbvfdjvj Plate Each Additional 87180-Pivdpbnz Plate Each Additional 20835-Gwgkrqex Plate Each Additional 38750-Wznlmmjh Plate Each Additional 12/2021 99422-Mgkhavun Plate Each Additional 54018-Pzqmjtdq Plate Each Additional 02/2021 38029-Ovfhrgna Plate Each Additional 49356-Zcgfeuut Plate Each Additional 33682-Rwylyosk Plate Each Additional 01247-Mxgpnxqs Plate Each Additional 26197-Qxieslub Plate Each Additional 19133-Koxlznlt Plate Each Additional 05/2020 93550-Nwkegiuk Plate Each Additional 07/2023 48449-Lqdbnhns Plate Each Additional 94694-RLGL SKIN LESIONS, OVER 4 06/28/19 89546-NYZU SKIN LESIONS, OVER 4 04/19/19 38062-GTSZ SKIN LESIONS, OVER 4 02/09/20 91934-NZSL SKIN LESIONS, OVER 4 10/28/19 42181-MUJF SKIN LESIONS, OVER 4 08/26/19 44493-ZROD SKIN LESIONS, OVER 4 06/10/19 34599-CRNQ SKIN LESIONS, OVER 4 03/31/19 11805-FDCJ SKIN LESIONS, OVER 4 01/14/20 68525-AGWN SKIN LESIONS, OVER 4 11/02/19 10874-GHWK SKIN LESIONS, OVER 4 08/24/19 05244-UYXE SKIN LESIONS, OVER 4 06/11/19 58791-HRUC SKIN LESIONS, OVER 4 04/01/19 52829-HJIN SKIN LESIONS, OVER 4 01/26/20 44310-MNCF SKIN LESIONS, OVER 4 11/17/19 05795-KQCS SKIN LESIONS, OVER 4 09/04/19 63679-BDIF SKIN LESIONS, OVER 4 05/29/19 50262-XKAA SKIN LESIONS, OVER 4 02/26/19 09595-OBGM SKIN LESIONS, OVER 4 04/08/19 67854-ZVTU SKIN LESIONS, OVER 4 01/27/20 41363-SQOA SKIN LESIONS, OVER 4 08/27/19 61732-PCWK SKIN LESIONS, OVER 4 06/18/19 52459-RKGT SKIN LESIONS, OVER 4 09/30/19 03775-FIVY SKIN LESIONS, OVER 4 06/13/19 96192-JAQU SKIN LESIONS, OVER 4 03/11/19 07191-DDFM SKIN LESIONS, OVER 4 12/04/19 Insurance Providers Payer Name Payer Address Payer Phone Subscriber Number Group Number Insured Name Patient Relationship to Insured Coverage Start Date Coverage End Date [employer] [address] [id number] Faisal Moran Self - patient is the insured Medical (General) History Medical History History ICD Code Back pain Hypertension Neck strain Surgical History Surgery Date(Month/Year) hernia inguinal hernia repair 04/05/2017 Hospitalization History Reason Date(Month/Year) [facility]ost[facility]ui- broke leg 06/25/2020 [facility]- Inguinal Hernia Repair Right 018
--- OUTSIDE RECORDS SUMMARY | 2025-02-03 17:22 | XMS_ITS | Clinical Summary ---
Author Organization [facility] Address [address] [place] [address] Care Team Providers Care Financial Systems Administrator Name Role Phone Unavailable Primary Care Provider [...]
--- OUTSIDE RECORDS SUMMARY | 2025-02-03 17:22 | XMS_ITS | Encounter Summary ---
Author Organization [employer] Address [address] 7 [place] [address] Care Team Providers Care Environmental Intern Name Role Phone Unavailable Primary Care Provider Unavailabl e Encounter Details Date Type Department Care Team (Latest Contact Info) Description 02/01/2021 Abstract [facility] CONVERSIONS Dental, Provider, DDS Social History [...]
== END 2025-02-03 14:31 | disposition home or self-care (01) ==
LOC: HO.HMCFMS 13:52
PROVIDERS: PCP Student in an Organized Health Care Education/Training Program; Visit Provider Student in an Organized Health Care Education/Training Program
DX: J44.9 Chronic obstructive pulmonary disease, unspecified (principal); J43.9 Emphysema, unspecified; G62.9 Polyneuropathy, unspecified; M19.90 Unspecified osteoarthritis, unspecified site; D51.0 Vitamin B12 deficiency anemia due to intrinsic factor deficiency; K76.89 Other specified diseases of liver; K82.4 Cholesterolosis of gallbladder; E53.8 Deficiency of other specified B group vitamins; I44.0 Atrioventricular block, first degree; I73.9 Peripheral vascular disease, unspecified; I70.90 Unspecified atherosclerosis; I10 Essential (primary) hypertension

== ENCOUNTER → 2025-02-03 13:52 | Outpatient (BNVA) | payer MEDICARE, SELFPAY | PROVIDERS: PCP Student in an Organized Health Care Education/Training Program; Visit Provider Student in an Organized Health Care Education/Training Program | DX: J44.9 Chronic obstructive pulmonary disease, unspecified (principal); J43.9 Emphysema, unspecified; G62.9 Polyneuropathy, unspecified; M19.90 Unspecified osteoarthritis, unspecified site; K76.89 Other specified diseases of liver; K82.4 Cholesterolosis of gallbladder; E53.8 Deficiency of other specified B group vitamins; I44.0 Atrioventricular block, first degree; I73.9 Peripheral vascular disease, unspecified; I70.90 Unspecified atherosclerosis; I10 Essential (primary) hypertension | CPT/HCPCS: 96127; 99212 ==

== ENCOUNTER 2025-02-12 07:54 | Outpatient (AMB) | payer MEDICARE, SELFPAY ==
--- OUTSIDE RECORDS SUMMARY | 2023-09-13 10:15 | XMS_ITS ---
Author Organization [facility] Address [address] [place] [address] Care Team Providers Care Firer Tunnel Kiln Name Role Phone Keri WHITAKER, Juan Alberto Primary Care Provider U Juan Guzman Unavailable [phone] Encounters Encounter Location Date Provider [facility] [address] [place] [address] [place] [phone] 09/13/2023 Juan Thompson Plan Of Treatment No Information Progress Notes * Faisal MORANDOB:[birth year] (84 yo M)Acc No.[id number]:09/13/2023 Progress Note Patient: Faisal JACKSON Provider: Yara Thompson DPM :1940 A ge:83 Y S ex:Male Date:09/13/2023 Address:[address] [place] [phone] Pcp:Juan Alberto Saavedra MD Subjective: * Chief [...] 09/13/2023 Generated for Printi ng/Faxing/eTransmitting on: 1 07:57 AM EST
--- OUTSIDE RECORDS SUMMARY | 2023-10-18 10:45 | XMS_ITS ---
Author Organization [facility] Address [address] [place] [address] Care Team Providers Care Transition Nurse Name Role Phone Keri WHITAKER, Juan Alberto Primary Care Provider U Juan Guzman Unavailable [phone] Encounters Encounter Location Date Provider Diagnosis [facility] [address] [place] [address] [place] [phone] 10/18/2023 Juan Thompson Plan Of Treatment No Information Progress Notes * Faisal MORANDOB:[birth year] (84 yo M)Acc No.[id number]:10/18/2023 Progress Note Patient: Faisal JACKSON Provider: Yara Thompson DPM :1940 A ge:83 Y S ex:Male Date:10/18/2023 Address:[address] [place] [phone] Pcp:Juan Alberto Saavedra [...] * Provider: Yara Thompson DPM Date: 0 10/18/2023 Generated for Printi ng/Faxing/eTransmitting on: 1 07:57 AM EST
--- OUTSIDE RECORDS SUMMARY | 2025-02-12 07:57 | XMS_ITS | Encounter Summary ---
Author Organization [employer] Address [address] [place] [address] Care Team Providers Care It Generalist Name Role Phone Unavailable Primary Care Provider Unavailabl e Encounter Details Date Type Department Care Team (Latest Contact Info) Description 02/01/2021 Abstract [facility] CONVERSIONS Dental, Provider, DDS Social History [...]
--- OUTSIDE RECORDS SUMMARY | 2025-02-12 07:57 | XMS_ITS | Patient Health Record ---
Author Organization [facility] Address [address] [place] [address] Care Team Providers Care Silo Operator Name Role Phone Keri WHITAKER, [facility] Primary Care Provider U Juan Guzman Unavailable [phone] Allergies No Known Allergies Reason For Referral [...] Treatment Pending Test Test Name Order Date 11039-YKNBTTV NAIL, 6 OR MORE 05/18/2015 60765-DCDSAED NAIL, 6 OR MORE 08/24/2015 96405-JFDRUNP NAIL, 6 OR MORE 12/23/2015 79700-GOFQXZJ NAIL, 6 OR MORE 07/07/2016 64177-ADDTRVV NAIL, 6 OR MORE 10/13/2016 69482-ZXAQRZZ NAIL, 6 OR MORE 01/12/2017 58207-MOWNNFV NAIL, 6 OR MORE 05/04/2017 14481-FNHNMQD NAIL, 6 OR MORE 08/10/2017 21706-PNFXUUZ NAIL, 6 OR MORE 11/09/2017 57632-DHQLTBR NAIL, 6 OR MORE 01/20/2014 09394-MRYDEBA NAIL, 6 OR MORE 04/21/2014 34627-CKDVXRV NAIL, 6 OR MORE 08/06/2014 56665-YIMYHCP NAIL, 6 OR MORE 11/10/2014 15145-PRUIRFH NAIL, 6 OR MORE 02/16/2015 50142-KIAMLXN NAIL, 6 OR MORE 02/26/2018 43577-ERXIMSI NAIL, 6 OR MORE 05/28/2018 39057-CQAVLVA NAIL, 6 OR MORE 09/03/2018 02596-IMTIZQQ NAIL, 6 OR MORE 12/03/2018 15062-QOMYYMQ NAIL, 6 OR MORE 03/11/2019 77647-VYTXQNX NAIL, 6 OR MORE 06/13/2019 19944-FUQUCZA NAIL, 6 OR MORE 09/30/2019 53689-FNHREYP NAIL, 6 OR MORE 01/27/2020 64701-THVVRXN NAIL, 6 OR MORE 04/08/2020 30222-TLZMZBO NAIL, 6 OR MORE 06/17/2020 98357-AKWCDBC NAIL, 6 OR MORE 08/26/2020 21736-NKEAIVK NAIL, 6 OR MORE 11/16/2020 94971-APSIVIM NAIL, 6 OR MORE 01/25/2021 09812-KVPOXOM NAIL, 6 OR MORE 04/01/2021 04219-KEXEJIQ NAIL, 6 OR MORE 06/10/2021 60890-XWJJJXQ NAIL, 6 OR MORE 08/23/2021 26098-VIVKVRK NAIL, 6 OR MORE 11/01/2021 51214-QQAOCVA NAIL, 6 OR MORE 01/13/2022 77716-LSJMPQK NAIL, 6 OR MORE 03/31/2022 97413-VHPQAON NAIL, 6 OR MORE 06/09/2022 73618-UQUWSCB NAIL, 6 OR MORE 08/25/2022 26704-JUCCGNP NAIL, 6 OR MORE 10/27/2022 26257-LCLWTMC NAIL, 6 OR MORE 02/08/2023 95430-YVIBWSQ NAIL, 6 OR MORE 04/19/2023 46031-CYFAVHR NAIL, 6 OR MORE 06/28/2023 05419-Ktzvctbz Plate 06/28/2023 83629-Llaiispb Plate 04/19/2023 34805-Vdzybpdu Plate 01/27/2020 06459-Vqtujyku Plate 02/08/2023 38185-Dsrbyses Plate 10/27/2022 89389-Pfztzyqu Plate 08/25/2022 13321-Iunzdapk Plate 06/09/2022 57369-Vitbgcdi Plate 03/31/2022 32357-Kdeulhxi Plate 01/13/2022 21194-Tbvlokpd Plate 11/01/2021 76747-Afihdmvz Plate 08/23/2021 95084-Vcempmsp Plate 06/10/2021 90278-Axwaohbe Plate 04/01/2021 90625-Jtofpfio Plate 01/25/2021 71303-Jmgadwpc Plate 11/16/2020 10682-Swfbxsdd Plate 08/26/2020 79868-Rnhpgglb Plate 04/08/2020 23887-Ajlhrjmc Plate 02/16/2015 46550-Thxelfic Plate Each Additional 05566-Iqtrbjrb Plate Each Additional 91710-Fgvjamfs Plate Each Additional 51823-Thugxznz Plate Each Additional 72377-Hvhbptgk Plate Each Additional 12/2021 52581-Isxpkdbh Plate Each Additional 90185-Xmpdhyfl Plate Each Additional 02/2021 52944-Rphclizg Plate Each Additional 16802-Gximdjrh Plate Each Additional 82332-Irfarcxq Plate Each Additional 86078-Qkjlwtap Plate Each Additional 90500-Hjckrddq Plate Each Additional 33909-Xuobiqzz Plate Each Additional 05/2020 90550-Jdzxfsfh Plate Each Additional 07/2023 00446-Urkhffnk Plate Each Additional 76731-OUGL SKIN LESIONS, OVER 4 06/28/19 86145-NNGG SKIN LESIONS, OVER 4 04/19/19 63128-MEGD SKIN LESIONS, OVER 4 02/09/20 07719-CRPH SKIN LESIONS, OVER 4 10/28/19 98307-ZBXO SKIN LESIONS, OVER 4 08/26/19 85496-SMXI SKIN LESIONS, OVER 4 06/10/19 93769-OKHD SKIN LESIONS, OVER 4 03/31/19 88648-NPRF SKIN LESIONS, OVER 4 01/14/20 04563-XVAC SKIN LESIONS, OVER 4 11/02/19 04955-TADG SKIN LESIONS, OVER 4 08/24/19 79283-JFGY SKIN LESIONS, OVER 4 06/11/19 87747-LHFP SKIN LESIONS, OVER 4 04/01/19 32748-MCDV SKIN LESIONS, OVER 4 01/26/20 55842-FKYT SKIN LESIONS, OVER 4 11/17/19 42318-IPRK SKIN LESIONS, OVER 4 09/04/19 49573-PGOS SKIN LESIONS, OVER 4 05/29/19 66113-UDHF SKIN LESIONS, OVER 4 02/26/19 48936-NHIK SKIN LESIONS, OVER 4 04/08/19 14730-LTJQ SKIN LESIONS, OVER 4 01/27/20 83768-IEKT SKIN LESIONS, OVER 4 08/27/19 45666-EDNX SKIN LESIONS, OVER 4 06/18/19 62493-GFUL SKIN LESIONS, OVER 4 09/30/19 31474-MXNQ SKIN LESIONS, OVER 4 06/13/19 80737-IBGJ SKIN LESIONS, OVER 4 03/11/19 02733-WZZB SKIN LESIONS, OVER 4 12/04/19 Insurance Providers Payer Name Payer Address Payer Phone Subscriber Number Group Number Insured Name Patient Relationship to Insured Coverage Start Date Coverage End Date [employer] [address] [id number] Faisal Moran Self - patient is the insured Medical (General) History Medical History History ICD Code Back pain Hypertension Neck strain Surgical History Surgery Date(Month/Year) hernia inguinal hernia repair 04/05/2017 Hospitalization History Reason Date(Month/Year) [facility]- broke leg 06/25/2020 [facility]- Inguinal Hernia Repair Right 018
--- OUTSIDE RECORDS SUMMARY | 2025-02-12 07:57 | XMS_ITS | Clinical Summary ---
Author Organization [employer] Address [address] [facility] [address] [place] [address] Care Team Providers Care Carton Lettering Machine Operator Name Role Phone Unavailable Primary Care Provider [...]
[2025-02-12 08:10] VITALS: BMI 23.4
--- NOTE | 2025-02-12 08:10 | A.OFFVIS_ITS ---
Vital Signs 02/12/25 08:10 Height 5 ft 3 in Weight 132 lb BMI 23.4 Intake Visit Reasons: Thickened nails Intake Note: Faisal is an 84 year old male who presents today as a new patient for an evaluation of his thickened nails. Patient reports this has been going on for almost 2 years. He has not tried anything to treat his nails at this time. Patient mentions experiencing pain on the bunion of his right foot and he has not tried a bunion sleeve. 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 Silviculture Forester Required: Yes Silviculture Forester Services: Silviculture Forester Present Silviculture Forester Name: [id number] Allergies No Known Allergies Allergy (Verified 02/12/25 08:16) HPI Comments Details: The patient is an 84 year old male with a past medical history as seen below presenting with concerns regarding right foot painful bunion and thickened toenails x10. He states he currently uses orthotics and inserts for his shoes with mild relief. Patient states he is concerned for worsening of the bunion leading to crossover toes. He states he experiences mild tingling to the 1st MPJ. He denies any recent imaging of the foot. Patient states he experiences discomfort to the toes when the nails are too thick due to the thickness growing upwards. Patient notes not had previous treatment for his nails and states that the condition has been ongoing for the past 2 years. He denies any recent pedal injuries. He denies any other pedal concerns. [facility] Medical History (Updated 02/19/25 @ 09:11 by Geni Fuller DPM) Varicose veins of bilateral lower extremities with other complications Tinea unguium Hallux valgus (acquired), right foot Right foot pain Urinary incontinence, mixed Hyperlipidemia CKD (chronic kidney disease) stage 2, GFR 60-89 ml/min History of supraventricular tachycardia Trigeminal neuralgia Congestive heart failure Dyspnea Blurry vision Thickened nails Surgical History H/O hernia repair Social History Housing: Apartment Alcohol intake: never Patient Tobacco Use Status: Never used Tobacco e-Cigarette/Vaping Use: Never Used Second Hand Smoke Exposure: No service: No Current occupational status: unemployed Current occupational exposures/hazards: No Cognitive needs: No Hearing needs: No Vision needs: Yes Review of Systems Const Details: Review of Systems - Neurological: Reports occasional tingling in his right foot. - Musculoskeletal: Reports painful right bunion. - Integumentary: Reports discomfort when toenails are too thick or long. All systems reviewed & are unremarkable except as noted in HPI and below Physical Exam Vital Signs: BMI result Body Mass Index 23.4 Extrem Other: B/L lower extremity focused physical exam: Derm: Thickened and dystrophic toenails x10 with mild subungual debris. No open lesions abrasions or wounds noted. No discoloration noted. No hyperkeratotic or macerated areas noted. Skin supple and turgor within normal limits. No clinical signs of infection noted. Vasc: DP/PT pulses mildly palpable. Capillary refill time less than 3 seconds. Temperature gradient warm to warm. Pedal hair diminished. Varicosities noted. No edema noted. Neuro: Protective sensation is slightly diminished. MSK: Mild Pain on palpation to the right 1st MPJ of the area of the medial bony prominence. Tracking right hallux valgus. Hammertoe deformities noted. No crepitus or fluctuance noted. Discomfort to toes due to thickened nails. Range of motion of the hindfoot and ankle within normal limits. Range of motion of forefoot slightly reduced. Class B and C findings noted. Office Procedures AMB Debridement/Avulsion Podia Details: Debrided toenails x10 using sterile Dremel without incidents. 19945-Twwxxrgkvyo of Nail 6+ Procedure code (CPT) selection complete Results Reviewed Results Reviewed: Ordered right foot weightbearing 3 views xrays to be done prior to the next visit. Assessment & Plan Assessment & Plan (1) Hallux valgus (acquired), right foot: Code(s): M20.11 - Hallux valgus (acquired), right foot Category: Medical (2) Right foot pain: Code(s): M79.671 - Pain in right foot Category: Medical (3) PAD (peripheral artery disease): Code(s): I73.9 - Peripheral vascular disease, unspecified Category: Medical (4) Polyneuropathy: Code(s): G62.9 - Polyneuropathy, unspecified Category: Medical (5) Tinea unguium: Code(s): B35.1 - Tinea unguium Category: Medical (6) Varicose veins of bilateral lower extremities with other complications: Code(s): I83.893 - Varicose veins of bilateral lower extremities with other complications Category: Medical Plan Patient was informed and verbally consented to the use of an ambient scribe for clinic note documentation during this visit. I discussed with the patient that his right foot pain is related to a bunion or arthritis, and that an X-ray would help clarify the diagnosis. I recommended using a bunion sleeve for cushioning. I explained that the thickened toenails are likely due to fungus and that regular debridement every nine weeks will help manage thickness and associated discomfort. I provided instructions for obtaining the X-ray. The patient acknowledged the plan and had no questions. - Ordered right foot x-rays to be performed prior to next visit. - Prescribed a bunion sleeve to be worn to the right foot for pain relief. - Debrided toenails x10. - Recommend routine nail care every 9 weeks. - Advised patient to wear supportive shoe gear and to avoid barefoot walking. RTC in 9 weeks. Orders: Orders XR foot RT min 3V 02/12/25 M20.11 - Hallux valgus (acquired), right foot, M79.671 - Pain in right foot AMB Debridement/Avulsion Podiatry 02/12/25 B35.1 - Tinea unguium, G62.9 - Polyneuropathy, unspecified, I73.9 - Peripheral vascular disease, unspecified, I83.893 - Varicose veins of bilateral lower extremities with other complications, M20.11 - Hallux valgus (acquired), right foot, M79.671 - Pain in right foot Medications: New [Bunion sleeve] As directed 1 ea 0RF M20.11 - Hallux valgus (acquired), right foot, M79.671 - Pain in right foot Coding Level of Care Code New Pt Level 4 (36478) Diagnoses Hallux valgus (acquired), right foot M20.11 Right foot pain M79.671 PAD (peripheral artery disease) I73.9 Polyneuropathy G62.9 Tinea unguium B35.1 Varicose veins of bilateral lower extremities with other complications I83.893 CPT Codes Skin Debridement - CPT: 03922-Dhqmoluhdgf of Nail 6+ ([id number]) Time Spent (min) 53 Comment 8 mins for the procedure
== END 2025-02-12 08:36 | disposition home or self-care (01) ==
LOC: HO.HPODS 07:55
PROVIDERS: PCP Student in an Organized Health Care Education/Training Program; Visit Provider Student in an Organized Health Care Education/Training Program
DX: M20.11 Hallux valgus (acquired), right foot (principal); M79.671 Pain in right foot; I73.9 Peripheral vascular disease, unspecified; G62.9 Polyneuropathy, unspecified; B35.1 Tinea unguium; I83.893 Varicose veins of bilateral lower extremities with other complications
CPT/HCPCS: 11721; 99204

== ENCOUNTER → 2025-02-12 07:54 | Outpatient (BNVA) | payer MEDICARE, SELFPAY | PROVIDERS: PCP Student in an Organized Health Care Education/Training Program; Visit Provider Student in an Organized Health Care Education/Training Program | DX: B35.1 Tinea unguium (principal); M79.671 Pain in right foot; I73.9 Peripheral vascular disease, unspecified; M20.11 Hallux valgus (acquired), right foot; G62.9 Polyneuropathy, unspecified; I83.893 Varicose veins of bilateral lower extremities with other complications | CPT/HCPCS: 11721; 99202 ==